=== PATIENT | male | born 1965 | race African-American/Black ===

== ENCOUNTER 2021-12-24 15:32 | Inpatient (IN) | payer MEDICARE ==
[2021-12-24 18:07] VITALS: BMI 23.7
[2021-12-24] MEDS ORDERED: MAGNESIUM CITRATE 300 ML BOTTLE PO PRN (21:34)
[2021-12-24] MEDS ORDERED: LOPERAMIDE HCL 2 MG CAPSULE PO PRN (21:34)
[2021-12-24] MEDS ORDERED: guaiFENesin 200 MG/10 ML 10 ML UNIT-DOSE CUPS PO PRN (21:34)
[2021-12-24] MEDS ORDERED: IBUPROFEN 400 MG TABLET (FP) PO PRN (21:34)
[2021-12-24] MEDS ORDERED: P-EPHED 60MG/TRIPROLIDI 2.5MG TABLET PO PRN (21:34)
[2021-12-25] MEDS: THIAMINE HCL 100 MG TABLET (FP) PO SCH ×2 (02:41→21:13)
[2021-12-25 09:32] LABS: HEMOGLOBIN 11.8 GM/dL (11.7-16.9); MCH 27.8 pg (25.7-33.7); MCHC 31.8 g/dl (32.0-35.9); MEAN CELL VOLUME 87.5 fl (80-96); MEAN PLT VOLUME 9.1 fl (7.5-11.1); PLATELET COUNT 179 10^3/uL (134-434); RBC 4.23 M/mm3 (4.00-5.60); RDW 13.9 % (11.9-15.9); WHITE BLOOD COUNT 4.1 K/mm3 (4.0-10.0)
[2021-12-25 09:51] LABS: ALBUMIN 3.5 g/dl (3.4-5.0)
[2021-12-25 09:52] LABS: BLOOD UREA NITROGEN 16.9 mg/dL (7-18)
[2021-12-25 09:56] LABS: CREATININE 1.7 mg/dL (0.55-1.3)
[2021-12-25 09:57] LABS: BILIRUBIN,TOTAL 0.3 mg/dL (0.2-1); TOT PROT 6.6 g/dl (6.4-8.2)
[2021-12-25] MEDS: PRENATAL VITAMINS W/ FOLIC ACID TABLET (FP) PO SCH (10:08)
[2021-12-25] MEDS: hydrOXYzine PAMOATE 25 MG CAPSULE (FP) PO PRN (10:08)
[2021-12-25] MEDS: MELATONIN 5 MG TABLETS PO PRN (21:13)
[2021-12-26] MEDS: PRENATAL VITAMINS W/ FOLIC ACID TABLET (FP) PO SCH (10:11)
[2021-12-26 19:07] LABS: PH,URINE 5.5 (5.0-8.0); URINE APPEARANCE CLEAR; URINE BILIRUBIN NEGATIVE (NEGATIVE); URINE COLOR YELLOW; URINE GLUCOSE (UA) NEGATIVE (NEGATIVE); URINE KETONE NEGATIVE (NEGATIVE); URINE LEUK ESTERASE NEGATIVE (NEGATIVE); URINE NITRITE NEGATIVE (NEGATIVE); URINE PROTEIN NEGATIVE (NEGATIVE); URINE UROBILINOGEN 0.2 mg/dL (0.2-1.0)
[2021-12-26 20:16] LABS: OPIATES, URI NEGATIVE (NEGATIVE); URINE BARBITURATES NEGATIVE (NEGATIVE)
[2021-12-26 20:17] LABS: METHADONE, UR NEGATIVE (NEGATIVE); PHENCYCLIDINE,URINE NEGATIVE (NEGATIVE); URINE BENZODIAZEPINES NEGATIVE (NEGATIVE)
[2021-12-26 20:28] LABS: COCAINE, UR POSITIVE (NEGATIVE); URINE AMPHETAMINES NEGATIVE (NEGATIVE)
[2021-12-26] MEDS: THIAMINE HCL 100 MG TABLET (FP) PO SCH (22:02)
[2021-12-27] MEDS: ACETAMINOPHEN 325 MG TABLET (FP) PO PRN (05:54)
[2021-12-27] MEDS: PRENATAL VITAMINS W/ FOLIC ACID TABLET (FP) PO SCH (10:05)
[2021-12-27] MEDS: THIAMINE HCL 100 MG TABLET (FP) PO SCH (21:59)
[2021-12-28] MEDS: ACETAMINOPHEN 325 MG TABLET (FP) PO PRN (02:39)
[2021-12-28] MEDS: PRENATAL VITAMINS W/ FOLIC ACID TABLET (FP) PO SCH (10:02)
[2021-12-28] MEDS: hydrOXYzine PAMOATE 25 MG CAPSULE (FP) PO PRN (10:03)
[2021-12-28 16:07] LABS: SARS-CoV-2 NAA Not Detected (Not Detected)
[2021-12-28] MEDS: THIAMINE HCL 100 MG TABLET (FP) PO SCH (22:33)
[2021-12-29] MEDS: PRENATAL VITAMINS W/ FOLIC ACID TABLET (FP) PO SCH (10:29)
[2021-12-29] MEDS: hydrOXYzine PAMOATE 25 MG CAPSULE (FP) PO PRN (10:30)
[2021-12-29] MEDS: MAGNESIUM HYDROX 2400MG/30ML ORAL SUSPENSION 30 ML CUP PO PRN (14:00)
[2021-12-29] MEDS: MINERAL OIL/PETROLAT/WATER TOPICAL CREAM 113 GM JAR TP SCH (15:43)
[2021-12-29] MEDS: THIAMINE HCL 100 MG TABLET (FP) PO SCH (21:21)
[2021-12-29] MEDS: CARBAMIDE PEROXIDE 6.5% OTIC 15 ML BOTTLE AU SCH (21:21)
[2021-12-29] MEDS: MELATONIN 5 MG TABLETS PO PRN (21:21)
[2021-12-29] MEDS: VITAMINS A AND D TOPICAL OINTMENT 60 GM TUBE TP SCH (21:22)
[2021-12-29] MEDS: MAG HYDROX/AL HYDROX/SIMETH 30 ML UNIT-DOSE CUP PO PRN (21:22)
[2021-12-30] MEDS: MINERAL OIL/PETROLAT/WATER TOPICAL CREAM 113 GM JAR TP SCH (10:04)
[2021-12-30] MEDS: VITAMINS A AND D TOPICAL OINTMENT 60 GM TUBE TP SCH ×2 (10:04→21:14)
[2021-12-30] MEDS: PRENATAL VITAMINS W/ FOLIC ACID TABLET (FP) PO SCH (10:04)
[2021-12-30] MEDS: CARBAMIDE PEROXIDE 6.5% OTIC 15 ML BOTTLE AU SCH ×2 (10:04→21:14)
[2021-12-30] MEDS: hydrOXYzine PAMOATE 25 MG CAPSULE (FP) PO PRN ×2 (10:06→21:14)
[2021-12-30] MEDS: MAG HYDROX/AL HYDROX/SIMETH 30 ML UNIT-DOSE CUP PO PRN ×2 (10:07→21:14)
[2021-12-30] MEDS: MELATONIN 5 MG TABLETS PO PRN (21:13)
[2021-12-30] MEDS: THIAMINE HCL 100 MG TABLET (FP) PO SCH (21:13)
[2021-12-31] MEDS: hydrOXYzine PAMOATE 25 MG CAPSULE (FP) PO PRN ×2 (10:07→21:06)
[2021-12-31] MEDS: PRENATAL VITAMINS W/ FOLIC ACID TABLET (FP) PO SCH (10:07)
[2021-12-31] MEDS: VITAMINS A AND D TOPICAL OINTMENT 60 GM TUBE TP SCH ×2 (10:09→21:06)
[2021-12-31] MEDS: MINERAL OIL/PETROLAT/WATER TOPICAL CREAM 113 GM JAR TP SCH (10:09)
[2021-12-31] MEDS: CARBAMIDE PEROXIDE 6.5% OTIC 15 ML BOTTLE AU SCH ×2 (10:57→21:06)
[2021-12-31] MEDS: MELATONIN 5 MG TABLETS PO PRN (21:05)
[2021-12-31] MEDS: THIAMINE HCL 100 MG TABLET (FP) PO SCH (21:05)
[2022-01-01] MEDS: MINERAL OIL/PETROLAT/WATER TOPICAL CREAM 113 GM JAR TP SCH (10:12)
[2022-01-01] MEDS: PRENATAL VITAMINS W/ FOLIC ACID TABLET (FP) PO SCH (10:12)
[2022-01-01] MEDS: CARBAMIDE PEROXIDE 6.5% OTIC 15 ML BOTTLE AU SCH (10:12)
[2022-01-01] MEDS: hydrOXYzine PAMOATE 25 MG CAPSULE (FP) PO PRN ×2 (10:13→21:23)
[2022-01-01] MEDS: VITAMINS A AND D TOPICAL OINTMENT 60 GM TUBE TP SCH ×2 (10:13→21:22)
[2022-01-01] MEDS: MAGNESIUM HYDROX 2400MG/30ML ORAL SUSPENSION 30 ML CUP PO PRN (10:14)
[2022-01-01] MEDS: MELATONIN 5 MG TABLETS PO PRN (21:22)
[2022-01-01] MEDS: THIAMINE HCL 100 MG TABLET (FP) PO SCH (21:23)
[2022-01-02] MEDS: hydrOXYzine PAMOATE 25 MG CAPSULE (FP) PO PRN ×2 (09:46→21:01)
[2022-01-02] MEDS: VITAMINS A AND D TOPICAL OINTMENT 60 GM TUBE TP SCH ×2 (09:46→21:20)
[2022-01-02] MEDS: MINERAL OIL/PETROLAT/WATER TOPICAL CREAM 113 GM JAR TP SCH (09:46)
[2022-01-02] MEDS: PRENATAL VITAMINS W/ FOLIC ACID TABLET (FP) PO SCH (09:46)
[2022-01-02] MEDS: MELATONIN 5 MG TABLETS PO PRN (21:01)
[2022-01-02] MEDS: THIAMINE HCL 100 MG TABLET (FP) PO SCH (21:01)
[2022-01-03] MEDS: PRENATAL VITAMINS W/ FOLIC ACID TABLET (FP) PO SCH (10:33)
[2022-01-03] MEDS: MINERAL OIL/PETROLAT/WATER TOPICAL CREAM 113 GM JAR TP SCH (10:33)
[2022-01-03] MEDS: VITAMINS A AND D TOPICAL OINTMENT 60 GM TUBE TP SCH ×2 (10:34→21:30)
[2022-01-03] MEDS: hydrOXYzine PAMOATE 25 MG CAPSULE (FP) PO PRN ×2 (10:35→21:30)
[2022-01-03] MEDS: MAGNESIUM HYDROX 2400MG/30ML ORAL SUSPENSION 30 ML CUP PO PRN (16:13)
[2022-01-03] MEDS: THIAMINE HCL 100 MG TABLET (FP) PO SCH (21:34)
[2022-01-04] MEDS: VITAMINS A AND D TOPICAL OINTMENT 60 GM TUBE TP SCH ×2 (10:17→21:02)
[2022-01-04] MEDS: MINERAL OIL/PETROLAT/WATER TOPICAL CREAM 113 GM JAR TP SCH (10:17)
[2022-01-04] MEDS: PRENATAL VITAMINS W/ FOLIC ACID TABLET (FP) PO SCH (10:17)
[2022-01-04] MEDS: MAGNESIUM HYDROX 2400MG/30ML ORAL SUSPENSION 30 ML CUP PO PRN (10:19)
[2022-01-04] MEDS: hydrOXYzine PAMOATE 25 MG CAPSULE (FP) PO PRN ×2 (10:19→21:02)
[2022-01-04] MEDS: THIAMINE HCL 100 MG TABLET (FP) PO SCH (21:02)
[2022-01-05] MEDS: hydrOXYzine PAMOATE 25 MG CAPSULE (FP) PO PRN ×2 (10:40→22:12)
[2022-01-05] MEDS: VITAMINS A AND D TOPICAL OINTMENT 60 GM TUBE TP SCH ×2 (10:40→22:13)
[2022-01-05] MEDS: PRENATAL VITAMINS W/ FOLIC ACID TABLET (FP) PO SCH (10:40)
[2022-01-05] MEDS: MINERAL OIL/PETROLAT/WATER TOPICAL CREAM 113 GM JAR TP SCH (10:41)
[2022-01-05] MEDS: THIAMINE HCL 100 MG TABLET (FP) PO SCH (22:12)
[2022-01-05] MEDS: MELATONIN 5 MG TABLETS PO PRN (22:12)
[2022-01-06] MEDS: PRENATAL VITAMINS W/ FOLIC ACID TABLET (FP) PO SCH (10:21)
[2022-01-06] MEDS: hydrOXYzine PAMOATE 25 MG CAPSULE (FP) PO PRN (10:21)
[2022-01-06] MEDS: MINERAL OIL/PETROLAT/WATER TOPICAL CREAM 113 GM JAR TP SCH (10:22)
[2022-01-06] MEDS: VITAMINS A AND D TOPICAL OINTMENT 60 GM TUBE TP SCH ×2 (10:22→21:46)
[2022-01-06] MEDS: MELATONIN 5 MG TABLETS PO PRN (21:45)
[2022-01-06] MEDS: THIAMINE HCL 100 MG TABLET (FP) PO SCH (21:45)
[2022-01-07 07:14] VITALS: TEMP 98.1
[2022-01-07] MEDS: VITAMINS A AND D TOPICAL OINTMENT 60 GM TUBE TP SCH ×2 (10:29→21:53)
[2022-01-07] MEDS: PRENATAL VITAMINS W/ FOLIC ACID TABLET (FP) PO SCH (10:29)
[2022-01-07] MEDS: MINERAL OIL/PETROLAT/WATER TOPICAL CREAM 113 GM JAR TP SCH (10:31)
[2022-01-07] MEDS: THIAMINE HCL 100 MG TABLET (FP) PO SCH (21:03)
[2022-01-07] MEDS: MELATONIN 5 MG TABLETS PO PRN (21:03)
[2022-01-07] MEDS: hydrOXYzine PAMOATE 25 MG CAPSULE (FP) PO PRN (21:03)
[2022-01-08 07:18] VITALS: BP 155/93; PULSE 68
[2022-01-08] MEDS: MINERAL OIL/PETROLAT/WATER TOPICAL CREAM 113 GM JAR TP SCH (09:47)
[2022-01-08] MEDS: PRENATAL VITAMINS W/ FOLIC ACID TABLET (FP) PO SCH (09:47)
[2022-01-08] MEDS: VITAMINS A AND D TOPICAL OINTMENT 60 GM TUBE TP SCH (09:48)
== END 2022-01-08 09:56 | disposition home or self-care (01) | DRG 895 ==
LOC: YASAS 15:32 → Y3W 12-25 01:59
PROVIDERS: ADMIT Allergy & Immunology; ATTEND Allergy & Immunology
PROC: HZ42ZZZ Group Counseling for Substance Abuse Treatment, Cognitive-Behavioral (ICD-10-PCS; principal; 2021-12-25)
DX: F14.20 Cocaine dependence, uncomplicated (principal); Z85.528 Personal history of other malignant neoplasm of kidney; Z90.5 Acquired absence of kidney
CPT/HCPCS: 36415; 80053; 80307; 81003; 85027; 86780; 93005; 93010; C9803-CS; U0003; U0005

== ENCOUNTER 2022-02-22 10:01 | Inpatient (IN) | payer MEDICARE ==
[2022-02-22 10:14] VITALS: BMI 23.7
[2022-02-22] MEDS ORDERED: chlordiazePOXIDE HCL 25 MG CAPSULE PO PRN (11:00)
[2022-02-22] MEDS ORDERED: BISMUTH SUBSALICYLATE 524 MG/30 ML PO PRN (11:00)
[2022-02-22] MEDS ORDERED: MAGNESIUM HYDROX 2400MG/30ML ORAL SUSPENSION 30 ML CUP PO PRN (11:00)
[2022-02-22] MEDS ORDERED: ONDANSETRON *ODT* 4 MG TABLET SL PRN (11:00)
[2022-02-22] MEDS ORDERED: LOPERAMIDE HCL 2 MG CAPSULE PO PRN (11:00)
[2022-02-22] MEDS ORDERED: IBUPROFEN 600 MG TABLET (FP) PO PRN (11:00)
[2022-02-22] MEDS ORDERED: ACETAMINOPHEN 325 MG TABLET (FP) PO PRN ×2 (11:00)
[2022-02-22] MEDS ORDERED: IBUPROFEN 400 MG TABLET (FP) PO PRN (11:00)
[2022-02-22] MEDS ORDERED: DICYCLOMINE HCL 10 MG CAPSULE PO PRN (11:00)
[2022-02-22] MEDS ORDERED: BENZOCAINE/MENTHOL (CHLORASEPTIC ) LOZENGE MM PRN (11:00)
[2022-02-22] MEDS ORDERED: MAG HYDROX/AL HYDROX/SIMETH 30 ML UNIT-DOSE CUP PO PRN (11:00)
[2022-02-22] MEDS ORDERED: MAGNESIUM CITRATE 300 ML BOTTLE PO PRN (11:00)
[2022-02-22] MEDS: chlordiazePOXIDE HCL 25 MG CAPSULE PO SCH ×3 (11:37→22:10)
[2022-02-22] MEDS: METHOCARBAMOL 500 MG TABLET PO PRN (11:37)
[2022-02-22] MEDS: hydrOXYzine PAMOATE 25 MG CAPSULE (FP) PO SCH ×3 (13:12→22:10)
[2022-02-22] MEDS: MELATONIN 5 MG TABLETS PO SCH (22:09)
[2022-02-22] MEDS: THIAMINE HCL 100 MG TABLET (FP) PO SCH (22:10)
[2022-02-23] MEDS: hydrOXYzine PAMOATE 25 MG CAPSULE (FP) PO SCH ×5 (06:12→22:34)
[2022-02-23] MEDS: chlordiazePOXIDE HCL 25 MG CAPSULE PO SCH ×4 (06:12→22:34)
[2022-02-23] MEDS: PRENATAL VITAMINS W/ FOLIC ACID TABLET (FP) PO SCH (10:44)
[2022-02-23 11:55] LABS: HEMATOCRIT 35.7 % (35.4-49); HEMOGLOBIN 11.7 GM/dL (11.7-16.9); MCH 27.8 pg (25.7-33.7); MCHC 32.8 g/dl (32.0-35.9); MEAN CELL VOLUME 84.7 fl (80-96); MEAN PLT VOLUME 9.5 fl (7.5-11.1); PLATELET COUNT 185 10^3/uL (134-434); RBC 4.21 M/mm3 (4.00-5.60); RDW 13.3 % (11.9-15.9)
[2022-02-23 11:57] LABS: BLOOD UREA NITROGEN 18.7 mg/dL (7-18); CALCIUM 8.8 mg/dL (8.5-10.1)
[2022-02-23 11:58] LABS: ALBUMIN 2.8 g/dl (3.4-5.0)
[2022-02-23 12:01] LABS: CREATININE 1.8 mg/dL (0.55-1.3)
[2022-02-23 12:02] LABS: BILIRUBIN,TOTAL 0.3 mg/dL (0.2-1)
[2022-02-23] MEDS: THIAMINE HCL 100 MG TABLET (FP) PO SCH (22:33)
[2022-02-23] MEDS: MELATONIN 5 MG TABLETS PO SCH (22:33)
[2022-02-24] MEDS: hydrOXYzine PAMOATE 25 MG CAPSULE (FP) PO SCH ×5 (05:45→22:17)
[2022-02-24] MEDS: chlordiazePOXIDE HCL 25 MG CAPSULE PO SCH ×4 (05:45→22:17)
[2022-02-24] MEDS: PRENATAL VITAMINS W/ FOLIC ACID TABLET (FP) PO SCH (10:09)
[2022-02-24 14:20] LABS: CREATININE 1.9 mg/dL (0.55-1.3)
[2022-02-24] MEDS: VITAMINS A AND D TOPICAL OINTMENT 60 GM TUBE TP SCH (15:17)
[2022-02-24] MEDS: THIAMINE HCL 100 MG TABLET (FP) PO SCH (22:17)
[2022-02-24] MEDS: MELATONIN 5 MG TABLETS PO SCH (22:17)
[2022-02-24] MEDS: CLOTRIMAZOLE 1% CREAM TP SCH (22:20)
[2022-02-25] MEDS ORDERED: chlordiazePOXIDE HCL 10 MG CAPSULE PO PRN
[2022-02-25 01:24] LABS: HIV INTERPRETATION NEGATIVE (NEGATIVE)
[2022-02-25] MEDS: chlordiazePOXIDE HCL 10 MG CAPSULE PO SCH ×4 (05:04→22:34)
[2022-02-25] MEDS: hydrOXYzine PAMOATE 25 MG CAPSULE (FP) PO SCH ×5 (05:04→22:33)
[2022-02-25] MEDS: PRENATAL VITAMINS W/ FOLIC ACID TABLET (FP) PO SCH (10:07)
[2022-02-25] MEDS: VITAMINS A AND D TOPICAL OINTMENT 60 GM TUBE TP SCH (10:08)
[2022-02-25] MEDS: CLOTRIMAZOLE 1% CREAM TP SCH ×2 (10:08→22:36)
[2022-02-25] MEDS: amLODIPine BESYLATE 5 MG TABLET (FP) PO SCH (17:51)
[2022-02-25] MEDS: THIAMINE HCL 100 MG TABLET (FP) PO SCH (22:34)
[2022-02-25] MEDS: MELATONIN 5 MG TABLETS PO SCH (22:34)
[2022-02-26] MEDS: chlordiazePOXIDE HCL 10 MG CAPSULE PO SCH ×2 (05:48→18:12)
[2022-02-26] MEDS: hydrOXYzine PAMOATE 25 MG CAPSULE (FP) PO SCH ×5 (05:48→22:23)
[2022-02-26] MEDS: CLOTRIMAZOLE 1% CREAM TP SCH ×2 (10:34→22:23)
[2022-02-26] MEDS: amLODIPine BESYLATE 5 MG TABLET (FP) PO SCH (10:34)
[2022-02-26] MEDS: PRENATAL VITAMINS W/ FOLIC ACID TABLET (FP) PO SCH (10:34)
[2022-02-26] MEDS: VITAMINS A AND D TOPICAL OINTMENT 60 GM TUBE TP SCH (10:35)
[2022-02-26] MEDS: MINERAL OIL/PETROLAT/WATER TOPICAL CREAM 113 GM JAR TP SCH ×2 (15:24→22:22)
[2022-02-26] MEDS: METHOCARBAMOL 500 MG TABLET PO PRN (22:21)
[2022-02-26] MEDS: MELATONIN 5 MG TABLETS PO SCH (22:21)
[2022-02-26] MEDS: THIAMINE HCL 100 MG TABLET (FP) PO SCH (22:21)
[2022-02-27] MEDS ORDERED: chlordiazePOXIDE HCL 10 MG CAPSULE PO ONE (05:00)
[2022-02-27] MEDS: hydrOXYzine PAMOATE 25 MG CAPSULE (FP) PO SCH ×2 (06:04→10:15)
[2022-02-27 09:42] VITALS: BP 136/89; PULSE 77; TEMP 97.2
[2022-02-27] MEDS: PRENATAL VITAMINS W/ FOLIC ACID TABLET (FP) PO SCH (10:14)
[2022-02-27] MEDS: amLODIPine BESYLATE 5 MG TABLET (FP) PO SCH (10:16)
[2022-02-27] MEDS: MINERAL OIL/PETROLAT/WATER TOPICAL CREAM 113 GM JAR TP SCH (10:16)
[2022-02-27] MEDS: VITAMINS A AND D TOPICAL OINTMENT 60 GM TUBE TP SCH (10:16)
[2022-02-27] MEDS: CLOTRIMAZOLE 1% CREAM TP SCH (10:16)
== END 2022-02-27 12:43 | disposition other institution (70) | DRG 897 ==
LOC: YASAS 10:01 → Y6N 10:48
PROVIDERS: ADMIT Allergy & Immunology; ATTEND Surgery
PROC: HZ2ZZZZ Detoxification Services for Substance Abuse Treatment (ICD-10-PCS; principal; 2022-02-22)
DX: F10.230 Alcohol dependence with withdrawal, uncomplicated (principal); F14.20 Cocaine dependence, uncomplicated; D72.819 Decreased white blood cell count, unspecified; L85.3 Xerosis cutis; N28.9 Disorder of kidney and ureter, unspecified; Z90.5 Acquired absence of kidney; Z85.528 Personal history of other malignant neoplasm of kidney; Z85.118 Personal history of other malignant neoplasm of bronchus and lung
CPT/HCPCS: 36415; 80053; 82565; 85027; 86780; 87389; 87811; C9803-CS; U0003; U0005

== ENCOUNTER 2022-02-27 11:06 | Inpatient (IN) | payer MEDICARE ==
[2022-02-27] MEDS ORDERED: P-EPHED 60MG/TRIPROLIDI 2.5MG TABLET PO PRN (13:08)
[2022-02-27] MEDS ORDERED: ACETAMINOPHEN 325 MG TABLET (FP) PO PRN (13:08)
[2022-02-27] MEDS ORDERED: IBUPROFEN 400 MG TABLET (FP) PO PRN (13:08)
[2022-02-27] MEDS ORDERED: LOPERAMIDE HCL 2 MG CAPSULE PO PRN (13:08)
[2022-02-27] MEDS ORDERED: MAGNESIUM CITRATE 300 ML BOTTLE PO PRN (13:08)
[2022-02-27] MEDS ORDERED: guaiFENesin 200 MG/10 ML 10 ML UNIT-DOSE CUPS PO PRN (13:08)
[2022-02-27] MEDS ORDERED: MAGNESIUM HYDROX 2400MG/30ML ORAL SUSPENSION 30 ML CUP PO PRN (13:08)
[2022-02-27] MEDS ORDERED: MAG HYDROX/AL HYDROX/SIMETH 30 ML UNIT-DOSE CUP PO PRN (13:08)
[2022-02-27] MEDS: VITAMINS A AND D TOPICAL OINTMENT 60 GM TUBE TP SCH (18:33)
[2022-02-27] MEDS: THIAMINE HCL 100 MG TABLET (FP) PO SCH (21:47)
[2022-02-27] MEDS: MELATONIN 5 MG TABLETS PO SCH (21:47)
[2022-02-27] MEDS: MINERAL OIL/PETROLAT/WATER TOPICAL CREAM 113 GM JAR TP SCH (21:48)
[2022-02-28] MEDS: VITAMINS A AND D TOPICAL OINTMENT 60 GM TUBE TP SCH ×4 (00:57→17:28)
[2022-02-28] MEDS: PRENATAL VITAMINS W/ FOLIC ACID TABLET (FP) PO SCH (09:32)
[2022-02-28] MEDS: MINERAL OIL/PETROLAT/WATER TOPICAL CREAM 113 GM JAR TP SCH ×2 (09:33→21:25)
[2022-02-28] MEDS: THIAMINE HCL 100 MG TABLET (FP) PO SCH (21:24)
[2022-02-28] MEDS: MELATONIN 5 MG TABLETS PO SCH (21:24)
[2022-03-01] MEDS: VITAMINS A AND D TOPICAL OINTMENT 60 GM TUBE TP SCH ×4 (01:03→18:06)
[2022-03-01] MEDS: PRENATAL VITAMINS W/ FOLIC ACID TABLET (FP) PO SCH (09:45)
[2022-03-01] MEDS: MINERAL OIL/PETROLAT/WATER TOPICAL CREAM 113 GM JAR TP SCH ×2 (09:46→21:24)
[2022-03-01] MEDS: MELATONIN 5 MG TABLETS PO SCH (21:24)
[2022-03-01] MEDS: THIAMINE HCL 100 MG TABLET (FP) PO SCH (21:24)
[2022-03-02] MEDS: VITAMINS A AND D TOPICAL OINTMENT 60 GM TUBE TP SCH ×4 (00:30→18:29)
[2022-03-02] MEDS: PRENATAL VITAMINS W/ FOLIC ACID TABLET (FP) PO SCH (09:59)
[2022-03-02] MEDS: MINERAL OIL/PETROLAT/WATER TOPICAL CREAM 113 GM JAR TP SCH ×2 (09:59→21:37)
[2022-03-02] MEDS: MELATONIN 5 MG TABLETS PO SCH (21:37)
[2022-03-02] MEDS: THIAMINE HCL 100 MG TABLET (FP) PO SCH (21:37)
[2022-03-03] MEDS: VITAMINS A AND D TOPICAL OINTMENT 60 GM TUBE TP SCH ×4 (01:26→18:12)
[2022-03-03] MEDS: MINERAL OIL/PETROLAT/WATER TOPICAL CREAM 113 GM JAR TP SCH ×2 (09:35→21:15)
[2022-03-03] MEDS: amLODIPine BESYLATE 5 MG TABLET (FP) PO SCH (09:35)
[2022-03-03] MEDS: PRENATAL VITAMINS W/ FOLIC ACID TABLET (FP) PO SCH (09:35)
[2022-03-03 15:29] LABS: CALCIUM 8.9 mg/dL (8.5-10.1)
[2022-03-03 15:30] LABS: BLOOD UREA NITROGEN 22.1 mg/dL (7-18)
[2022-03-03 15:33] LABS: CREATININE 1.8 mg/dL (0.55-1.3); PHOSPHOROUS 4.3 mg/dL (2.5-4.9)
[2022-03-03 15:36] LABS: ALBUMIN 3.6 g/dl (3.4-5.0)
[2022-03-03] MEDS: MELATONIN 5 MG TABLETS PO SCH (21:15)
[2022-03-03] MEDS: THIAMINE HCL 100 MG TABLET (FP) PO SCH (21:15)
[2022-03-04] MEDS: VITAMINS A AND D TOPICAL OINTMENT 60 GM TUBE TP SCH ×4 (01:37→18:43)
[2022-03-04] MEDS: PRENATAL VITAMINS W/ FOLIC ACID TABLET (FP) PO SCH (09:46)
[2022-03-04] MEDS: COLLOIDAL OATMEAL 1 BAR EACH TP PRN (09:46)
[2022-03-04] MEDS: amLODIPine BESYLATE 5 MG TABLET (FP) PO SCH (09:46)
[2022-03-04] MEDS: MINERAL OIL/PETROLAT/WATER TOPICAL CREAM 113 GM JAR TP SCH ×2 (09:46→21:30)
[2022-03-04] MEDS: THIAMINE HCL 100 MG TABLET (FP) PO SCH (21:30)
[2022-03-04] MEDS: SUVOREXANT 10 MG TABLET PO PRN (21:31)
[2022-03-05] MEDS: VITAMINS A AND D TOPICAL OINTMENT 60 GM TUBE TP SCH ×5 (00:48→23:11)
[2022-03-05] MEDS: MINERAL OIL/PETROLAT/WATER TOPICAL CREAM 113 GM JAR TP SCH ×2 (09:43→21:08)
[2022-03-05] MEDS: PRENATAL VITAMINS W/ FOLIC ACID TABLET (FP) PO SCH (09:43)
[2022-03-05] MEDS: amLODIPine BESYLATE 5 MG TABLET (FP) PO SCH (09:43)
[2022-03-05] MEDS: THIAMINE HCL 100 MG TABLET (FP) PO SCH (21:08)
[2022-03-05] MEDS: SUVOREXANT 10 MG TABLET PO PRN (21:08)
[2022-03-06] MEDS: VITAMINS A AND D TOPICAL OINTMENT 60 GM TUBE TP SCH ×3 (06:09→18:57)
[2022-03-06] MEDS: amLODIPine BESYLATE 5 MG TABLET (FP) PO SCH (09:50)
[2022-03-06] MEDS: MINERAL OIL/PETROLAT/WATER TOPICAL CREAM 113 GM JAR TP SCH ×2 (09:51→22:12)
[2022-03-06] MEDS: PRENATAL VITAMINS W/ FOLIC ACID TABLET (FP) PO SCH (09:51)
[2022-03-06] MEDS: hydrOXYzine PAMOATE 25 MG CAPSULE (FP) PO PRN (22:10)
[2022-03-06] MEDS: SUVOREXANT 10 MG TABLET PO PRN (22:10)
[2022-03-06] MEDS: THIAMINE HCL 100 MG TABLET (FP) PO SCH (22:11)
[2022-03-07] MEDS: VITAMINS A AND D TOPICAL OINTMENT 60 GM TUBE TP SCH ×5 (00:58→23:44)
[2022-03-07] MEDS: amLODIPine BESYLATE 5 MG TABLET (FP) PO SCH (09:41)
[2022-03-07] MEDS: PRENATAL VITAMINS W/ FOLIC ACID TABLET (FP) PO SCH (09:44)
[2022-03-07] MEDS: MINERAL OIL/PETROLAT/WATER TOPICAL CREAM 113 GM JAR TP SCH ×2 (09:44→21:36)
[2022-03-07] MEDS: BENZOCAINE/MENTHOL (CHLORASEPTIC ) LOZENGE MM PRN ×2 (10:48→16:57)
[2022-03-07] MEDS: THIAMINE HCL 100 MG TABLET (FP) PO SCH (21:36)
[2022-03-07] MEDS: hydrOXYzine PAMOATE 25 MG CAPSULE (FP) PO PRN (21:36)
[2022-03-07] MEDS: SUVOREXANT 10 MG TABLET PO PRN (21:38)
[2022-03-08] MEDS: VITAMINS A AND D TOPICAL OINTMENT 60 GM TUBE TP SCH ×3 (07:20→17:03)
[2022-03-08] MEDS: PRENATAL VITAMINS W/ FOLIC ACID TABLET (FP) PO SCH (09:57)
[2022-03-08] MEDS: MINERAL OIL/PETROLAT/WATER TOPICAL CREAM 113 GM JAR TP SCH ×2 (09:57→21:29)
[2022-03-08] MEDS: amLODIPine BESYLATE 5 MG TABLET (FP) PO SCH (09:57)
[2022-03-08] MEDS: BENZOCAINE/MENTHOL (CHLORASEPTIC ) LOZENGE MM PRN (09:59)
[2022-03-08] MEDS: THIAMINE HCL 100 MG TABLET (FP) PO SCH (21:28)
[2022-03-08] MEDS: hydrOXYzine PAMOATE 25 MG CAPSULE (FP) PO PRN (21:29)
[2022-03-08] MEDS: SUVOREXANT 10 MG TABLET PO PRN (21:29)
[2022-03-09] MEDS: VITAMINS A AND D TOPICAL OINTMENT 60 GM TUBE TP SCH ×4 (00:45→17:31)
[2022-03-09] MEDS: amLODIPine BESYLATE 5 MG TABLET (FP) PO SCH (09:51)
[2022-03-09] MEDS: MINERAL OIL/PETROLAT/WATER TOPICAL CREAM 113 GM JAR TP SCH ×2 (09:51→21:22)
[2022-03-09] MEDS: PRENATAL VITAMINS W/ FOLIC ACID TABLET (FP) PO SCH (09:51)
[2022-03-09] MEDS: THIAMINE HCL 100 MG TABLET (FP) PO SCH (21:20)
[2022-03-09] MEDS: hydrOXYzine PAMOATE 25 MG CAPSULE (FP) PO PRN (21:21)
[2022-03-09] MEDS: SUVOREXANT 10 MG TABLET PO PRN (21:22)
[2022-03-10] MEDS: VITAMINS A AND D TOPICAL OINTMENT 60 GM TUBE TP SCH ×4 (00:58→19:14)
[2022-03-10] MEDS: MINERAL OIL/PETROLAT/WATER TOPICAL CREAM 113 GM JAR TP SCH ×2 (09:43→21:23)
[2022-03-10] MEDS: amLODIPine BESYLATE 5 MG TABLET (FP) PO SCH (09:44)
[2022-03-10] MEDS: PRENATAL VITAMINS W/ FOLIC ACID TABLET (FP) PO SCH (09:44)
[2022-03-10] MEDS: THIAMINE HCL 100 MG TABLET (FP) PO SCH (21:23)
[2022-03-10] MEDS: hydrOXYzine PAMOATE 25 MG CAPSULE (FP) PO PRN (21:24)
[2022-03-10] MEDS: SUVOREXANT 10 MG TABLET PO PRN (21:24)
[2022-03-11] MEDS: VITAMINS A AND D TOPICAL OINTMENT 60 GM TUBE TP SCH ×4 (01:11→18:12)
[2022-03-11] MEDS: PRENATAL VITAMINS W/ FOLIC ACID TABLET (FP) PO SCH (09:36)
[2022-03-11] MEDS: amLODIPine BESYLATE 5 MG TABLET (FP) PO SCH (09:36)
[2022-03-11] MEDS: MINERAL OIL/PETROLAT/WATER TOPICAL CREAM 113 GM JAR TP SCH ×2 (09:39→21:31)
[2022-03-11] MEDS: COLLOIDAL OATMEAL 1 BAR EACH TP PRN (09:39)
[2022-03-11] MEDS: hydrOXYzine PAMOATE 25 MG CAPSULE (FP) PO PRN (21:30)
[2022-03-11] MEDS: THIAMINE HCL 100 MG TABLET (FP) PO SCH (21:30)
[2022-03-11] MEDS: SUVOREXANT 10 MG TABLET PO PRN (21:31)
[2022-03-12] MEDS: VITAMINS A AND D TOPICAL OINTMENT 60 GM TUBE TP SCH ×4 (01:13→18:25)
[2022-03-12] MEDS: amLODIPine BESYLATE 5 MG TABLET (FP) PO SCH (10:03)
[2022-03-12] MEDS: MINERAL OIL/PETROLAT/WATER TOPICAL CREAM 113 GM JAR TP SCH ×2 (10:04→21:38)
[2022-03-12] MEDS: PRENATAL VITAMINS W/ FOLIC ACID TABLET (FP) PO SCH (10:04)
[2022-03-12] MEDS: THIAMINE HCL 100 MG TABLET (FP) PO SCH (21:36)
[2022-03-12] MEDS: hydrOXYzine PAMOATE 25 MG CAPSULE (FP) PO PRN (21:36)
[2022-03-12] MEDS: SUVOREXANT 10 MG TABLET PO PRN (21:38)
[2022-03-13] MEDS: VITAMINS A AND D TOPICAL OINTMENT 60 GM TUBE TP SCH ×2 (00:30→06:54)
[2022-03-13 06:45] VITALS: TEMP 98.2
[2022-03-13 09:07] VITALS: BP 129/79; PULSE 71
[2022-03-13] MEDS: PRENATAL VITAMINS W/ FOLIC ACID TABLET (FP) PO SCH (09:13)
[2022-03-13] MEDS: amLODIPine BESYLATE 5 MG TABLET (FP) PO SCH (09:14)
[2022-03-13] MEDS: MINERAL OIL/PETROLAT/WATER TOPICAL CREAM 113 GM JAR TP SCH (09:14)
== END 2022-03-13 09:18 | disposition home or self-care (01) | DRG 895 ==
LOC: YASAS 11:06 → Y3E 11:08
PROVIDERS: ADMIT Allergy & Immunology; ATTEND Psychiatry & Neurology Pain Medicine
PROC: HZ42ZZZ Group Counseling for Substance Abuse Treatment, Cognitive-Behavioral (ICD-10-PCS; principal; 2022-02-27)
DX: F10.20 Alcohol dependence, uncomplicated (principal); F14.20 Cocaine dependence, uncomplicated; F19.280 Other psychoactive substance dependence with psychoactive substance-induced anxiety disorder; F19.282 Other psychoactive substance dependence with psychoactive substance-induced sleep disorder; G47.00 Insomnia, unspecified; I10 Essential (primary) hypertension; Z85.528 Personal history of other malignant neoplasm of kidney; Z90.5 Acquired absence of kidney
CPT/HCPCS: 36415; 80069

== ENCOUNTER 2023-04-29 13:30 | Inpatient (IN) | payer OTHER ==
[2023-04-29 14:13] VITALS: BMI 22.4
[2023-04-29] MEDS ORDERED: BISMUTH SUBSALICYLATE 524 MG/30 ML PO PRN (15:42)
[2023-04-29] MEDS ORDERED: IBUPROFEN 400 MG TABLET (FP) PO PRN (15:42)
[2023-04-29] MEDS ORDERED: POLYETHYLENE GLYCOL (HEALTHYLAX) 3350 17 GM PACKET PO PRN (15:42)
[2023-04-29] MEDS ORDERED: ACETAMINOPHEN 325 MG TABLET (FP) PO PRN (15:42)
[2023-04-29] MEDS ORDERED: NALOXONE HCL (KLOXXADO) 8 MG SPRAY NS PRN (15:42)
[2023-04-29] MEDS ORDERED: ONDANSETRON *ODT* 4 MG TABLET SL PRN (15:42)
[2023-04-29] MEDS ORDERED: BENZOCAINE/MENTHOL (CHLORASEPTIC ) LOZENGE MM PRN (15:42)
[2023-04-29] MEDS ORDERED: IBUPROFEN 600 MG TABLET (FP) PO PRN (15:42)
[2023-04-29] MEDS ORDERED: guaiFENesin 600 MG TABLET.ER (FP) PO PRN (15:42)
[2023-04-29] MEDS ORDERED: NALOXONE HCL 0.4 MG/ML VIAL IM PRN (15:42)
[2023-04-29] MEDS ORDERED: LOPERAMIDE HCL 2 MG CAPSULE PO PRN (15:42)
[2023-04-29] MEDS ORDERED: MAG HYDROX/AL HYDROX/SIMETH 30 ML UNIT-DOSE CUP PO PRN (15:42)
[2023-04-29] MEDS ORDERED: BENZONATATE 200 MG CAPSULE PO PRN (15:42)
[2023-04-29] MEDS ORDERED: DICYCLOMINE HCL 10 MG CAPSULE PO PRN (15:42)
[2023-04-29] MEDS ORDERED: hydrOXYzine PAMOATE 25 MG CAPSULE (FP) PO PRN (15:42)
[2023-04-29] MEDS ORDERED: METHOCARBAMOL 500 MG TABLET PO PRN (15:42)
[2023-04-29] MEDS ORDERED: chlordiazePOXIDE HCL 25 MG CAPSULE PO PRN (15:42)
[2023-04-29] MEDS ORDERED: MAGNESIUM HYDROX 2400MG/30ML ORAL SUSPENSION 30 ML CUP PO PRN (15:42)
[2023-04-29] MEDS ORDERED: chlordiazePOXIDE HCL 25 MG CAPSULE PO ONE (15:48)
[2023-04-29] MEDS: PRENATAL VITAMINS W/ FOLIC ACID TABLET (FP) PO SCH (19:03)
[2023-04-29] MEDS: amLODIPine BESYLATE 5 MG TABLET (FP) PO SCH (19:03)
[2023-04-29] MEDS: MELATONIN 5 MG TABLETS PO SCH (22:04)
[2023-04-29] MEDS: chlordiazePOXIDE HCL 25 MG CAPSULE PO SCH (22:04)
[2023-04-29] MEDS: THIAMINE HCL 100 MG TABLET (FP) PO SCH (22:04)
[2023-04-30] MEDS: chlordiazePOXIDE HCL 25 MG CAPSULE PO SCH ×4 (05:21→22:28)
[2023-04-30] MEDS: PRENATAL VITAMINS W/ FOLIC ACID TABLET (FP) PO SCH (10:09)
[2023-04-30] MEDS: amLODIPine BESYLATE 5 MG TABLET (FP) PO SCH (10:09)
[2023-04-30 12:01] LABS: HEMATOCRIT 41.3 % (35.4-49); HEMOGLOBIN 13.2 GM/dL (11.7-16.9); MCH 27.9 pg (25.7-33.7); MCHC 31.9 g/dl (32.0-35.9); MEAN CELL VOLUME 87.3 fl (80-96); MEAN PLT VOLUME 9.5 fl (7.5-11.1); PLATELET COUNT 177 10^3/uL (134-434); RBC 4.73 M/mm3 (4.00-5.60); RDW 13.1 % (11.9-15.9); WHITE BLOOD COUNT 3.9 K/mm3 (4.0-10.0)
[2023-04-30 12:15] LABS: POTASSIUM 3.8 mmol/L (3.5-5.1)
[2023-04-30 12:21] LABS: ALBUMIN 2.9 g/dl (3.4-5.0); BLOOD UREA NITROGEN 14.4 mg/dL (7-18)
[2023-04-30 12:22] LABS: CALCIUM 8.1 mg/dL (8.5-10.1)
[2023-04-30 12:24] LABS: CREATININE 1.5 mg/dL (0.55-1.3)
[2023-04-30 12:26] LABS: BILIRUBIN,TOTAL 0.5 mg/dL (0.2-1); TOT PROT 5.7 g/dl (6.4-8.2)
[2023-04-30] MEDS: MELATONIN 5 MG TABLETS PO SCH (22:29)
[2023-04-30] MEDS: THIAMINE HCL 100 MG TABLET (FP) PO SCH (22:29)
[2023-05-01] MEDS: chlordiazePOXIDE HCL 25 MG CAPSULE PO SCH ×4 (05:36→22:04)
[2023-05-01] MEDS: PRENATAL VITAMINS W/ FOLIC ACID TABLET (FP) PO SCH (10:32)
[2023-05-01] MEDS: amLODIPine BESYLATE 5 MG TABLET (FP) PO SCH (10:32)
[2023-05-01] MEDS: VITAMINS A AND D TOPICAL OINTMENT 60 GM TUBE TP SCH (19:06)
[2023-05-01] MEDS: THIAMINE HCL 100 MG TABLET (FP) PO SCH (22:03)
[2023-05-01] MEDS: MELATONIN 5 MG TABLETS PO SCH (22:03)
[2023-05-02] MEDS ORDERED: chlordiazePOXIDE HCL 10 MG CAPSULE PO PRN
[2023-05-02] MEDS: chlordiazePOXIDE HCL 10 MG CAPSULE PO SCH ×4 (05:32→22:07)
[2023-05-02] MEDS: VITAMINS A AND D TOPICAL OINTMENT 60 GM TUBE TP SCH ×3 (07:16→17:03)
[2023-05-02] MEDS: PRENATAL VITAMINS W/ FOLIC ACID TABLET (FP) PO SCH (10:27)
[2023-05-02] MEDS: amLODIPine BESYLATE 5 MG TABLET (FP) PO SCH (10:28)
[2023-05-02] MEDS ORDERED: MINERAL OIL/PET HY-PHL TOPICAL OINTMENT 454 GM JAR TP SCH (14:46)
[2023-05-02] MEDS ORDERED: guaiFENesin 200 MG/10 ML 10 ML UNIT-DOSE CUPS PO PRN (14:49)
[2023-05-02] MEDS: MELATONIN 5 MG TABLETS PO SCH (22:04)
[2023-05-02] MEDS: THIAMINE HCL 100 MG TABLET (FP) PO SCH (22:05)
[2023-05-02] MEDS: MINERAL OIL/PETROLAT/WATER TOPICAL CREAM 454 GM JAR TP SCH (22:06)
[2023-05-03] MEDS: VITAMINS A AND D TOPICAL OINTMENT 60 GM TUBE TP SCH ×5 (00:57→23:30)
[2023-05-03] MEDS: chlordiazePOXIDE HCL 10 MG CAPSULE PO SCH ×2 (05:47→17:52)
[2023-05-03] MEDS: amLODIPine BESYLATE 5 MG TABLET (FP) PO SCH (10:14)
[2023-05-03] MEDS: MINERAL OIL/PETROLAT/WATER TOPICAL CREAM 454 GM JAR TP SCH ×2 (10:14→22:14)
[2023-05-03] MEDS: PRENATAL VITAMINS W/ FOLIC ACID TABLET (FP) PO SCH (10:15)
[2023-05-03] MEDS: MELATONIN 5 MG TABLETS PO SCH (22:14)
[2023-05-03] MEDS: THIAMINE HCL 100 MG TABLET (FP) PO SCH (22:15)
[2023-05-04] MEDS ORDERED: chlordiazePOXIDE HCL 10 MG CAPSULE PO ONE (05:00)
[2023-05-04] MEDS: VITAMINS A AND D TOPICAL OINTMENT 60 GM TUBE TP SCH ×2 (05:23→12:50)
[2023-05-04 09:22] VITALS: BP 128/82; PULSE 93; RESP 18; TEMP 97.3
[2023-05-04] MEDS: amLODIPine BESYLATE 5 MG TABLET (FP) PO SCH (10:07)
[2023-05-04] MEDS: PRENATAL VITAMINS W/ FOLIC ACID TABLET (FP) PO SCH (10:07)
[2023-05-04] MEDS: MINERAL OIL/PETROLAT/WATER TOPICAL CREAM 454 GM JAR TP SCH (10:08)
== END 2023-05-04 12:08 | disposition other institution (70) | DRG 897 ==
LOC: YASAS 13:30 → Y3N 17:05
PROVIDERS: ADMIT Allergy & Immunology; ATTEND Allergy & Immunology
PROC: HZ2ZZZZ Detoxification Services for Substance Abuse Treatment (ICD-10-PCS; principal; 2023-04-29)
DX: F10.230 Alcohol dependence with withdrawal, uncomplicated (principal); F14.20 Cocaine dependence, uncomplicated; F17.210 Nicotine dependence, cigarettes, uncomplicated; F19.982 Other psychoactive substance use, unspecified with psychoactive substance-induced sleep disorder; F19.980 Other psychoactive substance use, unspecified with psychoactive substance-induced anxiety disorder; N28.9 Disorder of kidney and ureter, unspecified; R05.9 Cough, unspecified; G47.00 Insomnia, unspecified; Z85.528 Personal history of other malignant neoplasm of kidney; Z85.118 Personal history of other malignant neoplasm of bronchus and lung; Z90.5 Acquired absence of kidney; Z92.21 Personal history of antineoplastic chemotherapy; Y04.0XXA Assault by unarmed brawl or fight, initial encounter; Y93.9 Activity, unspecified; Y92.239 Unspecified place in hospital as the place of occurrence of the external cause
CPT/HCPCS: 36415; 71046-TC-FY; 80053; 85027; 86780; 87635; Q0162

== ENCOUNTER 2023-05-04 12:11 | Inpatient (IN) | payer OTHER ==
[2023-05-04] MEDS ORDERED: LOPERAMIDE HCL 2 MG CAPSULE PO PRN (15:16)
[2023-05-04] MEDS ORDERED: IBUPROFEN 600 MG TABLET (FP) PO PRN (15:16)
[2023-05-04] MEDS ORDERED: NICOTINE POLACRILEX 4 MG GUM BUC PRN (15:16)
[2023-05-04] MEDS ORDERED: BENZONATATE 200 MG CAPSULE PO PRN (15:16)
[2023-05-04] MEDS ORDERED: guaiFENesin 600 MG TABLET.ER (FP) PO PRN (15:16)
[2023-05-04] MEDS ORDERED: METHOCARBAMOL 500 MG TABLET PO PRN (15:16)
[2023-05-04] MEDS ORDERED: MAGNESIUM HYDROX 2400MG/30ML ORAL SUSPENSION 30 ML CUP PO PRN (15:16)
[2023-05-04] MEDS ORDERED: NICOTINE 14 MG/24 HOURS TOPICAL PATCH TD PRN (15:16)
[2023-05-04] MEDS ORDERED: MAG HYDROX/AL HYDROX/SIMETH 30 ML UNIT-DOSE CUP PO PRN (15:16)
[2023-05-04] MEDS ORDERED: ACETAMINOPHEN 325 MG TABLET (FP) PO PRN (15:16)
[2023-05-04] MEDS ORDERED: POLYETHYLENE GLYCOL (HEALTHYLAX) 3350 17 GM PACKET PO PRN (15:16)
[2023-05-04] MEDS ORDERED: hydrOXYzine PAMOATE 25 MG CAPSULE (FP) PO PRN (15:16)
[2023-05-04] MEDS ORDERED: NALOXONE HCL (KLOXXADO) 8 MG SPRAY NS PRN (15:16)
[2023-05-04] MEDS ORDERED: IBUPROFEN 400 MG TABLET (FP) PO PRN (15:16)
[2023-05-04] MEDS ORDERED: NALOXONE HCL 0.4 MG/ML VIAL IVPUSH PRN (15:16)
[2023-05-04] MEDS: THIAMINE HCL 100 MG TABLET (FP) PO SCH (21:04)
[2023-05-04] MEDS: MELATONIN 5 MG TABLETS PO SCH (21:04)
[2023-05-05] MEDS: PRENATAL VITAMINS W/ FOLIC ACID TABLET (FP) PO SCH (09:37)
[2023-05-05] MEDS: amLODIPine BESYLATE 5 MG TABLET (FP) PO SCH (09:38)
[2023-05-05] MEDS: VITAMINS A AND D TOPICAL OINTMENT 60 GM TUBE TP SCH ×2 (12:35→19:11)
[2023-05-05] MEDS: COLLOIDAL OATMEAL 1 BAR EACH TP PRN (12:36)
[2023-05-05 15:01] LABS: HIV INTERPRETATION NEGATIVE (NEGATIVE)
[2023-05-05] MEDS: BENZOCAINE/MENTHOL (CHLORASEPTIC ) LOZENGE MM PRN (16:21)
[2023-05-05] MEDS: THIAMINE HCL 100 MG TABLET (FP) PO SCH (21:02)
[2023-05-05] MEDS: MELATONIN 5 MG TABLETS PO SCH (21:02)
[2023-05-06] MEDS: VITAMINS A AND D TOPICAL OINTMENT 60 GM TUBE TP SCH ×4 (00:20→18:50)
[2023-05-06] MEDS: PRENATAL VITAMINS W/ FOLIC ACID TABLET (FP) PO SCH (09:53)
[2023-05-06] MEDS: amLODIPine BESYLATE 5 MG TABLET (FP) PO SCH (09:53)
[2023-05-06] MEDS ORDERED: amLODIPine BESYLATE 5 MG TABLET (FP) PO SCH (14:00)
[2023-05-06] MEDS: THIAMINE HCL 100 MG TABLET (FP) PO SCH (21:18)
[2023-05-06] MEDS: MELATONIN 5 MG TABLETS PO SCH (21:18)
[2023-05-07] MEDS: VITAMINS A AND D TOPICAL OINTMENT 60 GM TUBE TP SCH ×4 (00:20→17:05)
[2023-05-07] MEDS: BENZOCAINE/MENTHOL (CHLORASEPTIC ) LOZENGE MM PRN (03:11)
[2023-05-07] MEDS: PRENATAL VITAMINS W/ FOLIC ACID TABLET (FP) PO SCH (09:40)
[2023-05-07] MEDS: amLODIPine BESYLATE 5 MG TABLET (FP) PO SCH (09:40)
[2023-05-07] MEDS: QUEtiapine FUMARATE 100 MG TABLET (FP) PO SCH (21:09)
[2023-05-07] MEDS: MELATONIN 5 MG TABLETS PO SCH (21:09)
[2023-05-07] MEDS: THIAMINE HCL 100 MG TABLET (FP) PO SCH (21:09)
[2023-05-08] MEDS: VITAMINS A AND D TOPICAL OINTMENT 60 GM TUBE TP SCH ×4 (01:13→18:50)
[2023-05-08] MEDS: PRENATAL VITAMINS W/ FOLIC ACID TABLET (FP) PO SCH (09:48)
[2023-05-08] MEDS: amLODIPine BESYLATE 5 MG TABLET (FP) PO SCH (09:49)
[2023-05-08] MEDS: THIAMINE HCL 100 MG TABLET (FP) PO SCH (21:05)
[2023-05-08] MEDS: QUEtiapine FUMARATE 100 MG TABLET (FP) PO SCH (21:05)
[2023-05-08] MEDS: MELATONIN 5 MG TABLETS PO SCH (21:05)
[2023-05-09] MEDS: VITAMINS A AND D TOPICAL OINTMENT 60 GM TUBE TP SCH ×4 (00:30→18:50)
[2023-05-09] MEDS: amLODIPine BESYLATE 5 MG TABLET (FP) PO SCH (09:23)
[2023-05-09] MEDS: PRENATAL VITAMINS W/ FOLIC ACID TABLET (FP) PO SCH (09:23)
[2023-05-09] MEDS: AMMONIUM LACTATE 12% LOTION 225 GM BOTTLE TP PRN (09:24)
[2023-05-09] MEDS: THIAMINE HCL 100 MG TABLET (FP) PO SCH (21:23)
[2023-05-09] MEDS: QUEtiapine FUMARATE 100 MG TABLET (FP) PO SCH (21:23)
[2023-05-09] MEDS: MELATONIN 5 MG TABLETS PO SCH (21:23)
[2023-05-10] MEDS: VITAMINS A AND D TOPICAL OINTMENT 60 GM TUBE TP SCH ×4 (00:50→18:09)
[2023-05-10] MEDS: PRENATAL VITAMINS W/ FOLIC ACID TABLET (FP) PO SCH (09:27)
[2023-05-10] MEDS: amLODIPine BESYLATE 5 MG TABLET (FP) PO SCH (09:27)
[2023-05-10] MEDS: QUEtiapine FUMARATE 100 MG TABLET (FP) PO SCH (21:14)
[2023-05-10] MEDS: THIAMINE HCL 100 MG TABLET (FP) PO SCH (21:14)
[2023-05-10] MEDS: MELATONIN 5 MG TABLETS PO SCH (21:14)
[2023-05-10] MEDS: CARBAMIDE PEROXIDE 6.5% OTIC 15 ML BOTTLE AU SCH (21:15)
[2023-05-11] MEDS: VITAMINS A AND D TOPICAL OINTMENT 60 GM TUBE TP SCH ×4 (00:25→18:50)
[2023-05-11] MEDS: CARBAMIDE PEROXIDE 6.5% OTIC 15 ML BOTTLE AU SCH ×2 (09:50→21:05)
[2023-05-11] MEDS: PRENATAL VITAMINS W/ FOLIC ACID TABLET (FP) PO SCH (09:51)
[2023-05-11] MEDS: AMMONIUM LACTATE 12% LOTION 225 GM BOTTLE TP PRN (09:51)
[2023-05-11] MEDS: amLODIPine BESYLATE 5 MG TABLET (FP) PO SCH (10:57)
[2023-05-11 11:05] LABS: POTASSIUM 4.8 mmol/L (3.5-5.1)
[2023-05-11 11:39] LABS: CALCIUM 8.9 mg/dL (8.5-10.1)
[2023-05-11 11:40] LABS: ALBUMIN 3.3 g/dl (3.4-5.0); BLOOD UREA NITROGEN 21.6 mg/dL (7-18)
[2023-05-11 11:43] LABS: CREATININE 1.6 mg/dL (0.55-1.3)
[2023-05-11 11:45] LABS: BILIRUBIN,TOTAL 0.4 mg/dL (0.2-1); TOT PROT 6.6 g/dl (6.4-8.2)
[2023-05-11 16:10] LABS: HIV INTERPRETATION NEGATIVE (NEGATIVE)
[2023-05-11] MEDS: MELATONIN 5 MG TABLETS PO SCH (21:04)
[2023-05-11] MEDS: THIAMINE HCL 100 MG TABLET (FP) PO SCH (21:04)
[2023-05-11] MEDS: QUEtiapine FUMARATE 100 MG TABLET (FP) PO SCH (21:05)
[2023-05-12] MEDS: VITAMINS A AND D TOPICAL OINTMENT 60 GM TUBE TP SCH ×4 (00:30→18:53)
[2023-05-12] MEDS: NALTREXONE HCL 50 MG TABLET PO SCH (09:48)
[2023-05-12] MEDS: amLODIPine BESYLATE 5 MG TABLET (FP) PO SCH (09:48)
[2023-05-12] MEDS: PRENATAL VITAMINS W/ FOLIC ACID TABLET (FP) PO SCH (09:48)
[2023-05-12] MEDS: CARBAMIDE PEROXIDE 6.5% OTIC 15 ML BOTTLE AU SCH ×2 (09:49→21:21)
[2023-05-12] MEDS: MELATONIN 5 MG TABLETS PO SCH (21:22)
[2023-05-12] MEDS: QUEtiapine FUMARATE 100 MG TABLET (FP) PO SCH (21:22)
[2023-05-12] MEDS: THIAMINE HCL 100 MG TABLET (FP) PO SCH (21:22)
[2023-05-13] MEDS: VITAMINS A AND D TOPICAL OINTMENT 60 GM TUBE TP SCH ×4 (01:00→18:50)
[2023-05-13] MEDS: amLODIPine BESYLATE 5 MG TABLET (FP) PO SCH (10:30)
[2023-05-13] MEDS: PRENATAL VITAMINS W/ FOLIC ACID TABLET (FP) PO SCH (10:30)
[2023-05-13] MEDS: NALTREXONE HCL 50 MG TABLET PO SCH (10:31)
[2023-05-13] MEDS: CARBAMIDE PEROXIDE 6.5% OTIC 15 ML BOTTLE AU SCH ×2 (10:31→21:19)
[2023-05-13] MEDS: QUEtiapine FUMARATE 100 MG TABLET (FP) PO SCH (21:19)
[2023-05-13] MEDS: THIAMINE HCL 100 MG TABLET (FP) PO SCH (21:19)
[2023-05-13] MEDS: MELATONIN 5 MG TABLETS PO SCH (21:19)
[2023-05-14] MEDS: VITAMINS A AND D TOPICAL OINTMENT 60 GM TUBE TP SCH ×4 (01:00→18:55)
[2023-05-14] MEDS: amLODIPine BESYLATE 5 MG TABLET (FP) PO SCH (09:46)
[2023-05-14] MEDS: PRENATAL VITAMINS W/ FOLIC ACID TABLET (FP) PO SCH (09:46)
[2023-05-14] MEDS: NALTREXONE HCL 50 MG TABLET PO SCH (09:46)
[2023-05-14] MEDS: MELATONIN 5 MG TABLETS PO SCH (21:13)
[2023-05-14] MEDS: QUEtiapine FUMARATE 100 MG TABLET (FP) PO SCH (21:13)
[2023-05-14] MEDS: THIAMINE HCL 100 MG TABLET (FP) PO SCH (21:13)
[2023-05-15] MEDS: VITAMINS A AND D TOPICAL OINTMENT 60 GM TUBE TP SCH ×4 (00:41→17:44)
[2023-05-15] MEDS: NALTREXONE HCL 50 MG TABLET PO SCH (09:37)
[2023-05-15] MEDS: PRENATAL VITAMINS W/ FOLIC ACID TABLET (FP) PO SCH (09:37)
[2023-05-15] MEDS: amLODIPine BESYLATE 5 MG TABLET (FP) PO SCH (09:37)
[2023-05-15] MEDS: AMMONIUM LACTATE 12% LOTION 225 GM BOTTLE TP PRN (09:39)
[2023-05-15] MEDS: QUEtiapine FUMARATE 100 MG TABLET (FP) PO SCH (22:10)
[2023-05-15] MEDS: MELATONIN 5 MG TABLETS PO SCH (22:11)
[2023-05-15] MEDS: THIAMINE HCL 100 MG TABLET (FP) PO SCH (22:11)
[2023-05-16] MEDS: VITAMINS A AND D TOPICAL OINTMENT 60 GM TUBE TP SCH ×4 (00:47→17:35)
[2023-05-16] MEDS: COLLOIDAL OATMEAL 1 BAR EACH TP PRN (05:52)
[2023-05-16] MEDS: PRENATAL VITAMINS W/ FOLIC ACID TABLET (FP) PO SCH (09:37)
[2023-05-16] MEDS: NALTREXONE HCL 50 MG TABLET PO SCH (09:37)
[2023-05-16] MEDS: amLODIPine BESYLATE 5 MG TABLET (FP) PO SCH (09:37)
[2023-05-16] MEDS: QUEtiapine FUMARATE 100 MG TABLET (FP) PO SCH (21:15)
[2023-05-16] MEDS: MELATONIN 5 MG TABLETS PO SCH (21:16)
[2023-05-16] MEDS: THIAMINE HCL 100 MG TABLET (FP) PO SCH (21:16)
[2023-05-17] MEDS: VITAMINS A AND D TOPICAL OINTMENT 60 GM TUBE TP SCH ×2 (00:20→06:14)
[2023-05-17 09:23] VITALS: BP 144/76; PULSE 79; RESP 18; TEMP 97.5
[2023-05-17] MEDS ORDERED: NALTREXONE MICROSPHERES (VIVITROL) 380 MG DISP.SYRIN IM ONE ×2 (10:00)
[2023-05-17] MEDS: amLODIPine BESYLATE 5 MG TABLET (FP) PO SCH (10:33)
[2023-05-17] MEDS: PRENATAL VITAMINS W/ FOLIC ACID TABLET (FP) PO SCH (10:33)
== END 2023-05-17 10:36 | disposition home or self-care (01) | DRG 895 ==
LOC: YASAS 12:11 → Y3W 12:13
PROVIDERS: ADMIT Allergy & Immunology; ATTEND Psychiatry & Neurology Pain Medicine
PROC: HZ42ZZZ Group Counseling for Substance Abuse Treatment, Cognitive-Behavioral (ICD-10-PCS; principal; 2023-05-04)
DX: F10.20 Alcohol dependence, uncomplicated (principal); F14.20 Cocaine dependence, uncomplicated; F19.280 Other psychoactive substance dependence with psychoactive substance-induced anxiety disorder; F19.282 Other psychoactive substance dependence with psychoactive substance-induced sleep disorder; E72.20 Disorder of urea cycle metabolism, unspecified; F41.9 Anxiety disorder, unspecified; G47.00 Insomnia, unspecified; H61.23 Impacted cerumen, bilateral; Z20.822 Contact with and (suspected) exposure to COVID-19; Z85.528 Personal history of other malignant neoplasm of kidney; Z90.5 Acquired absence of kidney; Z87.891 Personal history of nicotine dependence
CPT/HCPCS: 36415; 80053; 82140; 86803; 87389; 87635; J2315

== ENCOUNTER 2023-09-06 12:22 | Inpatient (IN) | payer OTHER ==
[2023-09-06 12:49] VITALS: BMI 22.1
[2023-09-06] MEDS ORDERED: BISMUTH SUBSALICYLATE 524 MG/30 ML PO PRN (13:16)
[2023-09-06] MEDS ORDERED: BENZOCAINE/MENTHOL (CHLORASEPTIC ) LOZENGE MM PRN (13:16)
[2023-09-06] MEDS ORDERED: BENZONATATE 200 MG CAPSULE PO PRN (13:16)
[2023-09-06] MEDS ORDERED: IBUPROFEN 600 MG TABLET (FP) PO PRN (13:16)
[2023-09-06] MEDS ORDERED: LOPERAMIDE HCL 2 MG CAPSULE PO PRN (13:16)
[2023-09-06] MEDS ORDERED: guaiFENesin 600 MG TABLET.ER (FP) PO PRN (13:16)
[2023-09-06] MEDS ORDERED: NALOXONE HCL 0.4 MG/ML VIAL IM PRN (13:16)
[2023-09-06] MEDS ORDERED: POLYETHYLENE GLYCOL (HEALTHYLAX) 3350 17 GM PACKET PO PRN (13:16)
[2023-09-06] MEDS ORDERED: ONDANSETRON *ODT* 4 MG TABLET SL PRN (13:16)
[2023-09-06] MEDS ORDERED: ACETAMINOPHEN 325 MG TABLET (FP) PO PRN (13:16)
[2023-09-06] MEDS ORDERED: IBUPROFEN 400 MG TABLET (FP) PO PRN (13:16)
[2023-09-06] MEDS ORDERED: DICYCLOMINE HCL 10 MG CAPSULE PO PRN (13:16)
[2023-09-06] MEDS ORDERED: NALOXONE HCL (KLOXXADO) 8 MG SPRAY NS PRN (13:16)
[2023-09-06] MEDS ORDERED: MAG HYDROX/AL HYDROX/SIMETH 30 ML UNIT-DOSE CUP PO PRN (13:16)
[2023-09-06] MEDS ORDERED: LORazepam 1 MG TABLET PO PRN (13:24)
[2023-09-06] MEDS: LORazepam 1 MG TABLET PO SCH ×2 (18:00→22:19)
[2023-09-06] MEDS ORDERED: MELATONIN 5 MG TABLETS PO SCH (22:00)
[2023-09-06] MEDS: THIAMINE HCL 100 MG TABLET (FP) PO SCH (22:18)
[2023-09-07] MEDS: LORazepam 1 MG TABLET PO SCH ×4 (05:50→22:24)
[2023-09-07] MEDS: PRENATAL VITAMINS W/ FOLIC ACID TABLET (FP) PO SCH (10:49)
[2023-09-07] MEDS: amLODIPine BESYLATE 2.5 MG TABLET (FP) PO SCH (10:49)
[2023-09-07 13:06] LABS: HEMATOCRIT 41.4 % (35.4-49); HEMOGLOBIN 13.5 GM/dL (11.7-16.9); MCH 27.9 pg (25.7-33.7); MCHC 32.7 g/dl (32.0-35.9); MEAN CELL VOLUME 85.4 fl (80-96); MEAN PLT VOLUME 9.7 fl (7.5-11.1); PLATELET COUNT 241 10^3/uL (134-434); RBC 4.85 M/mm3 (4.00-5.60); RDW 13.4 % (11.9-15.9); WHITE BLOOD COUNT 4.6 K/mm3 (4.0-10.0)
[2023-09-07 13:41] LABS: ALBUMIN 3.8 g/dl (3.4-5.0); BLOOD UREA NITROGEN 24.3 mg/dL (7-18); CALCIUM 9.4 mg/dL (8.5-10.1)
[2023-09-07 13:45] LABS: CREATININE 1.8 mg/dL (0.55-1.3)
[2023-09-07 13:46] LABS: BILIRUBIN,TOTAL 0.6 mg/dL (0.2-1); TOT PROT 7.6 g/dl (6.4-8.2)
[2023-09-07] MEDS ORDERED: LISINOPRIL 5 MG TABLET PO ONE (14:28)
[2023-09-07] MEDS: THIAMINE HCL 100 MG TABLET (FP) PO SCH (22:24)
[2023-09-07] MEDS: MELATONIN 5 MG TABLETS PO SCH (22:24)
[2023-09-08] MEDS: LORazepam 1 MG TABLET PO SCH ×5 (06:10→22:43)
[2023-09-08] MEDS: PRENATAL VITAMINS W/ FOLIC ACID TABLET (FP) PO SCH (10:28)
[2023-09-08] MEDS: amLODIPine BESYLATE 2.5 MG TABLET (FP) PO SCH (10:28)
[2023-09-08] MEDS ORDERED: COLLOIDAL OATMEAL 1 BAR EACH TP PRN (11:23)
[2023-09-08] MEDS: VITAMINS A AND D TOPICAL OINTMENT 60 GM TUBE TP SCH (12:14)
[2023-09-08] MEDS: MELATONIN 5 MG TABLETS PO SCH (22:29)
[2023-09-08] MEDS: THIAMINE HCL 100 MG TABLET (FP) PO SCH (22:29)
[2023-09-09] MEDS ORDERED: LORazepam 0.5 MG TABLET PO PRN
[2023-09-09] MEDS: LORazepam 0.5 MG TABLET PO SCH ×4 (05:31→22:09)
[2023-09-09] MEDS: amLODIPine BESYLATE 2.5 MG TABLET (FP) PO SCH (10:17)
[2023-09-09] MEDS: PRENATAL VITAMINS W/ FOLIC ACID TABLET (FP) PO SCH (10:17)
[2023-09-09] MEDS: VITAMINS A AND D TOPICAL OINTMENT 60 GM TUBE TP SCH (10:18)
[2023-09-09 10:36] LABS: POTASSIUM 4.2 mmol/L (3.5-5.1)
[2023-09-09 10:40] LABS: BLOOD UREA NITROGEN 18.4 mg/dL (7-18)
[2023-09-09 10:42] LABS: CALCIUM 9.6 mg/dL (8.5-10.1)
[2023-09-09 10:44] LABS: CREATININE 1.5 mg/dL (0.55-1.3); PHOSPHOROUS 2.6 mg/dL (2.5-4.9)
[2023-09-09] MEDS: MAGNESIUM HYDROX 2400MG/30ML ORAL SUSPENSION 30 ML CUP PO PRN (13:33)
[2023-09-09] MEDS: MELATONIN 5 MG TABLETS PO SCH (22:10)
[2023-09-09] MEDS: THIAMINE HCL 100 MG TABLET (FP) PO SCH (22:10)
[2023-09-10] MEDS ORDERED: LORazepam 0.5 MG TABLET PO ONE (05:00)
[2023-09-10 06:14] VITALS: RESP 18
[2023-09-10] MEDS: VITAMINS A AND D TOPICAL OINTMENT 60 GM TUBE TP SCH (10:05)
[2023-09-10] MEDS: PRENATAL VITAMINS W/ FOLIC ACID TABLET (FP) PO SCH (10:05)
[2023-09-10] MEDS: amLODIPine BESYLATE 2.5 MG TABLET (FP) PO SCH (10:05)
[2023-09-10] MEDS: MAGNESIUM HYDROX 2400MG/30ML ORAL SUSPENSION 30 ML CUP PO PRN (12:17)
[2023-09-10 12:51] VITALS: BP 162/90; PULSE 86; TEMP 95.5
== END 2023-09-10 14:40 | disposition home or self-care (01) | DRG 896 ==
LOC: YASAS 12:22 → Y3N 13:40 → Y6N 19:57
PROVIDERS: ADMIT Allergy & Immunology; ATTEND Surgery
PROC: HZ2ZZZZ Detoxification Services for Substance Abuse Treatment (ICD-10-PCS; principal; 2023-09-06)
DX: F10.230 Alcohol dependence with withdrawal, uncomplicated (principal); U07.1 COVID-19; F14.20 Cocaine dependence, uncomplicated; F19.282 Other psychoactive substance dependence with psychoactive substance-induced sleep disorder; F19.24 Other psychoactive substance dependence with psychoactive substance-induced mood disorder; I10 Essential (primary) hypertension; N28.9 Disorder of kidney and ureter, unspecified; R73.9 Hyperglycemia, unspecified; Z85.528 Personal history of other malignant neoplasm of kidney; Z90.5 Acquired absence of kidney
CPT/HCPCS: 36415; 80053; 80069; 80307; 83036; 85027; 86780; 87635; 87811

== ENCOUNTER 2023-12-02 18:23 | Inpatient (IN) | payer OTHER ==
[2023-12-02 21:10] VITALS: BMI 23.5
[2023-12-03] MEDS ORDERED: guaiFENesin 600 MG TABLET.ER (FP) PO PRN (00:47)
[2023-12-03] MEDS ORDERED: NALOXONE HCL (KLOXXADO) 8 MG SPRAY NS PRN (00:47)
[2023-12-03] MEDS ORDERED: NICOTINE POLACRILEX 2 MG GUM BUC PRN (00:47)
[2023-12-03] MEDS ORDERED: BENZOCAINE/MENTHOL (CHLORASEPTIC ) LOZENGE MM PRN (00:47)
[2023-12-03] MEDS ORDERED: BENZONATATE 200 MG CAPSULE PO PRN (00:47)
[2023-12-03] MEDS ORDERED: LOPERAMIDE HCL 2 MG CAPSULE PO PRN (00:47)
[2023-12-03] MEDS ORDERED: IBUPROFEN 400 MG TABLET (FP) PO PRN (00:47)
[2023-12-03] MEDS ORDERED: NALOXONE HCL 0.4 MG/ML VIAL IM PRN (00:47)
[2023-12-03] MEDS ORDERED: POLYETHYLENE GLYCOL (HEALTHYLAX) 3350 17 GM PACKET PO PRN (00:47)
[2023-12-03] MEDS: TUBERCULIN PPD 5 TU/0.1ML SYRINGE (IN PATIENT USE ONLY) ID ONE (07:20)
[2023-12-03] MEDS: NICOTINE 14 MG/24 HOURS TOPICAL PATCH TD SCH (10:28)
[2023-12-03] MEDS: PRENATAL VITAMINS W/ FOLIC ACID TABLET (FP) PO SCH (10:29)
[2023-12-03 12:26] LABS: PH,URINE 5.5 (5.0-8.0); URINE APPEARANCE CLEAR; URINE BILIRUBIN NEGATIVE (NEGATIVE); URINE COLOR YELLOW; URINE GLUCOSE (UA) NEGATIVE (NEGATIVE); URINE KETONE TRACE (NEGATIVE); URINE LEUK ESTERASE NEGATIVE (NEGATIVE); URINE NITRITE NEGATIVE (NEGATIVE); URINE PROTEIN TRACE (NEGATIVE)
[2023-12-03] MEDS: THIAMINE HCL 100 MG TABLET (FP) PO SCH (21:13)
[2023-12-03] MEDS: MELATONIN 5 MG TABLETS PO SCH (21:13)
[2023-12-03] MEDS: MAGNESIUM HYDROX 2400MG/30ML ORAL SUSPENSION 30 ML CUP PO PRN (21:15)
[2023-12-04 12:48] LABS: HEMATOCRIT 35.1 % (35.4-49); HEMOGLOBIN 11.6 GM/dL (11.7-16.9); MCH 28.3 pg (25.7-33.7); MCHC 32.9 g/dl (32.0-35.9); MEAN CELL VOLUME 85.9 fl (80-96); MEAN PLT VOLUME 9.1 fl (7.5-11.1); PLATELET COUNT 119 10^3/uL (134-434); RBC 4.09 M/mm3 (4.00-5.60); RDW 12.9 % (11.9-15.9); WHITE BLOOD COUNT 2.5 K/mm3 (4.0-10.0)
[2023-12-04 12:49] LABS: POTASSIUM 4.8 mmol/L (3.5-5.1)
[2023-12-04 12:56] LABS: CALCIUM 8.4 mg/dL (8.5-10.1)
[2023-12-04 12:58] LABS: ALBUMIN 2.4 g/dl (3.4-5.0); BLOOD UREA NITROGEN 17.1 mg/dL (7-18)
[2023-12-04 13:00] LABS: CREATININE 1.4 mg/dL (0.55-1.3)
[2023-12-04 13:01] LABS: TOT PROT 4.7 g/dl (6.4-8.2)
[2023-12-04 13:11] LABS: BILIRUBIN,TOTAL 0.2 mg/dL (0.2-1)
[2023-12-05] MEDS: VITAMINS A AND D TOPICAL OINTMENT TP SCH (12:02)
[2023-12-05] MEDS: SUVOREXANT 10 MG TABLET PO PRN (21:03)
[2023-12-06] MEDS: amLODIPine BESYLATE 2.5 MG TABLET (FP) PO SCH (10:06)
[2023-12-06] MEDS: LIDOCAINE 5% TOPICAL PATCH TP SCH (10:07)
[2023-12-06] MEDS: NALTREXONE HCL 50 MG TABLET PO SCH (10:57)
[2023-12-06] MEDS: LIDOCAINE PATCH REMOVAL MC SCH (21:49)
[2023-12-07] MEDS: NALTREXONE HCL 50 MG TABLET PO SCH (09:19)
[2023-12-07] MEDS: SUVOREXANT 10 MG TABLET PO PRN (21:03)
[2023-12-07 23:32] LABS: HIV INTERPRETATION NEGATIVE (NEGATIVE)
[2023-12-08] MEDS: BACLOFEN 10 MG TABLET (FP) PO SCH (15:01)
[2023-12-09] MEDS: SUVOREXANT 10 MG TABLET PO PRN (21:04)
[2023-12-12] MEDS: ACETAMINOPHEN 325 MG TABLET (FP) PO PRN (02:42)
[2023-12-13] MEDS: SUVOREXANT 10 MG TABLET PO PRN (21:27)
[2023-12-14] MEDS: SUVOREXANT 10 MG TABLET PO PRN (21:27)
[2023-12-14] MEDS: BACLOFEN 10 MG TABLET (FP) PO PRN (21:29)
[2023-12-16] MEDS: SUVOREXANT 10 MG TABLET PO PRN (21:37)
[2023-12-18] MEDS: MAG HYDROX/AL HYDROX/SIMETH 30 ML UNIT-DOSE CUP PO PRN (13:28)
[2023-12-19] MEDS: IBUPROFEN 600 MG TABLET (FP) PO PRN (06:31)
[2023-12-20] MEDS: SUVOREXANT 10 MG TABLET PO PRN (21:04)
[2023-12-22] MEDS: NALTREXONE MICROSPHERES (VIVITROL) 380 MG DISP.SYRIN IM ONE (10:11)
[2023-12-22] MEDS: SUVOREXANT 10 MG TABLET PO PRN (21:03)
[2023-12-23 06:45] VITALS: RESP 18; TEMP 97.5
[2023-12-23 09:06] VITALS: BP 133/86; PULSE 72
[2023-12-29] MEDS ORDERED: NALTREXONE MICROSPHERES (VIVITROL) 380 MG DISP.SYRIN IM ONE (10:00)
== END 2023-12-23 09:01 | disposition home or self-care (01) | DRG 895 ==
LOC: YASAS 18:23 → Y3W 12-03 03:12
PROVIDERS: ADMIT Allergy & Immunology; ATTEND Psychiatry & Neurology Pain Medicine
PROC: HZ42ZZZ Group Counseling for Substance Abuse Treatment, Cognitive-Behavioral (ICD-10-PCS; principal; 2023-12-03)
DX: F10.20 Alcohol dependence, uncomplicated (principal); F14.20 Cocaine dependence, uncomplicated; F19.282 Other psychoactive substance dependence with psychoactive substance-induced sleep disorder; F41.9 Anxiety disorder, unspecified; F32.A Depression, unspecified; G47.00 Insomnia, unspecified; I10 Essential (primary) hypertension; N28.9 Disorder of kidney and ureter, unspecified; L85.3 Xerosis cutis; R07.81 Pleurodynia; Z87.891 Personal history of nicotine dependence; Z85.528 Personal history of other malignant neoplasm of kidney
CPT/HCPCS: 36415; 80053; 80305; 80307; 81003; 85027; 86780; 87389; 87635; 87811; 93005; 93010; J0475; J2315

== ENCOUNTER 2024-08-03 16:20 | Inpatient (IN) | payer OTHER ==
[2024-08-03 16:38] VITALS: BMI 24.1
[2024-08-03] MEDS ORDERED: MAG HYDROX/AL HYDROX/SIMETH 30 ML UNIT-DOSE CUP PO PRN (18:10)
[2024-08-03] MEDS ORDERED: BENZONATATE 200 MG CAPSULE PO PRN (18:10)
[2024-08-03] MEDS ORDERED: DICYCLOMINE HCL 10 MG CAPSULE PO PRN (18:10)
[2024-08-03] MEDS ORDERED: POLYETHYLENE GLYCOL (HEALTHYLAX) 3350 17 GM PACKET PO PRN (18:10)
[2024-08-03] MEDS ORDERED: BENZOCAINE/MENTHOL (CHLORASEPTIC ) LOZENGE MM PRN (18:10)
[2024-08-03] MEDS ORDERED: guaiFENesin 600 MG TABLET.ER (FP) PO PRN (18:10)
[2024-08-03] MEDS ORDERED: IBUPROFEN 400 MG TABLET (FP) PO PRN (18:10)
[2024-08-03] MEDS ORDERED: LOPERAMIDE HCL 2 MG CAPSULE PO PRN (18:10)
[2024-08-03] MEDS ORDERED: ONDANSETRON *ODT* 4 MG TABLET SL PRN (18:10)
[2024-08-03] MEDS ORDERED: MELATONIN 5 MG TABLETS ONE (22:03)
[2024-08-03] MEDS: THIAMINE 100 MG TABLET PO SCH (22:05)
[2024-08-03] MEDS: MELATONIN 5 MG TABLETS PO SCH (22:05)
[2024-08-03] MEDS ORDERED: IBUPROFEN 600 MG TABLET (FP) PO ONE (22:09)
[2024-08-03] MEDS: IBUPROFEN 600 MG TABLET (FP) PO PRN (22:10)
[2024-08-04] MEDS ORDERED: ACETAMINOPHEN 325 MG TABLET (FP) ONE (00:59)
[2024-08-04] MEDS ORDERED: hydrOXYzine PAMOATE 25 MG CAPSULE (FP) PO ONE (00:59)
[2024-08-04] MEDS: hydrOXYzine PAMOATE 25 MG CAPSULE (FP) PO PRN (01:01)
[2024-08-04] MEDS: ACETAMINOPHEN 325 MG TABLET (FP) PO PRN (01:01)
[2024-08-04] MEDS ORDERED: chlordiazePOXIDE HCL 25 MG CAPSULE PO PRN (07:49)
[2024-08-04] MEDS: chlordiazePOXIDE HCL 25 MG CAPSULE PO ONE (08:00)
[2024-08-04] MEDS: PRENATAL VITAMINS W/ FOLIC ACID TABLET (FP) PO SCH (10:21)
[2024-08-04] MEDS: chlordiazePOXIDE HCL 25 MG CAPSULE PO SCH (10:21)
[2024-08-04] MEDS: BISMUTH SUBSALICYLATE 524 MG/30 ML PO PRN (10:23)
[2024-08-04 12:04] LABS: HEMATOCRIT 36.4 % (35.4-49); HEMOGLOBIN 12.1 GM/dL (11.7-16.9); MCH 28.3 pg (25.7-33.7); MCHC 33.2 g/dl (32.0-35.9); MEAN CELL VOLUME 85.4 fl (80-96); MEAN PLT VOLUME 8.6 fl (7.5-11.1); PLATELET COUNT 164 10^3/uL (134-434); RBC 4.26 M/mm3 (4.00-5.60); RDW 13.7 % (11.9-15.9); WHITE BLOOD COUNT 2.9 K/mm3 (4.0-10.0)
[2024-08-04 12:23] LABS: POTASSIUM 4.6 mmol/L (3.5-5.1)
[2024-08-04 12:25] LABS: CALCIUM 8.4 mg/dL (8.5-10.1)
[2024-08-04 12:28] LABS: ALBUMIN 2.5 g/dl (3.4-5.0); BLOOD UREA NITROGEN 9.8 mg/dL (7-18)
[2024-08-04 12:29] LABS: CREATININE 1.4 mg/dL (0.55-1.3)
[2024-08-04 12:30] LABS: BILIRUBIN,TOTAL 0.6 mg/dL (0.2-1)
[2024-08-04 13:09] LABS: HIV INTERPRETATION NEGATIVE (NEGATIVE)
[2024-08-04] MEDS: MAGNESIUM HYDROX 2400MG/30ML ORAL SUSPENSION 30 ML CUP PO PRN (17:22)
[2024-08-04] MEDS: QUEtiapine FUMARATE 50 MG TABLET PO SCH (22:05)
[2024-08-05] MEDS: VITAMINS A AND D TOPICAL OINTMENT TP PRN (10:07)
[2024-08-05] MEDS: METHOCARBAMOL 500 MG TABLET PO PRN (22:33)
[2024-08-06] MEDS: chlordiazePOXIDE HCL 25 MG CAPSULE PO SCH (05:50)
[2024-08-07] MEDS ORDERED: chlordiazePOXIDE HCL 10 MG CAPSULE PO PRN
[2024-08-07] MEDS: chlordiazePOXIDE HCL 10 MG CAPSULE PO SCH (05:57)
[2024-08-07 11:35] LABS: BASO % 0.6 % (0-2.0); HEMATOCRIT 38.6 % (35.4-49); HEMOGLOBIN 12.8 GM/dL (11.7-16.9); LYMPH % 33.4 % (8-40); MCH 28.4 pg (25.7-33.7); MCHC 33.2 g/dl (32.0-35.9); MEAN CELL VOLUME 85.6 fl (80-96); MEAN PLT VOLUME 8.7 fl (7.5-11.1); MONO % 7.9 % (3.8-10.2); NEUT % 55.1 % (42.8-82.8); PLATELET COUNT 219 10^3/uL (134-434); RBC 4.51 M/mm3 (4.00-5.60); RDW 13.7 % (11.9-15.9); WHITE BLOOD COUNT 4.2 K/mm3 (4.0-10.0)
[2024-08-07 11:42] LABS: POTASSIUM 4.2 mmol/L (3.5-5.1)
[2024-08-07 11:46] LABS: BLOOD UREA NITROGEN 20.4 mg/dL (7-18)
[2024-08-07 11:48] LABS: CREATININE 1.7 mg/dL (0.55-1.3)
[2024-08-08] MEDS: chlordiazePOXIDE HCL 10 MG CAPSULE PO SCH (05:32)
[2024-08-08] MEDS: NALOXONE (NYS OPIOID OVERDOSE PROGRAM) 4 MG/0.1 ML SPRAY NS SCH (11:35)
[2024-08-09] MEDS: chlordiazePOXIDE HCL 10 MG CAPSULE PO ONE (05:40)
[2024-08-09 09:36] VITALS: BP 136/77; PULSE 82; RESP 18; TEMP 98.7
== END 2024-08-09 13:03 | disposition other institution (70) | DRG 897 ==
LOC: YASAS 16:20 → Y3N 08-04 08:27
PROVIDERS: ADMIT Allergy & Immunology; ATTEND Surgery
PROC: HZ2ZZZZ Detoxification Services for Substance Abuse Treatment (ICD-10-PCS; principal; 2024-08-04)
DX: F10.230 Alcohol dependence with withdrawal, uncomplicated (principal); F14.20 Cocaine dependence, uncomplicated; F19.24 Other psychoactive substance dependence with psychoactive substance-induced mood disorder; F41.9 Anxiety disorder, unspecified; G47.00 Insomnia, unspecified; I10 Essential (primary) hypertension; N28.9 Disorder of kidney and ureter, unspecified; Z85.528 Personal history of other malignant neoplasm of kidney; Z62.810 Personal history of physical and sexual abuse in childhood; Z63.8 Other specified problems related to primary support group
CPT/HCPCS: 36415; 80048; 80053; 80305; 80307; 85025; 85027; 86803; 87389; 87811

== ENCOUNTER 2024-08-09 13:30 | Inpatient (IN) | payer OTHER ==
[2024-08-09] MEDS ORDERED: BENZOCAINE/MENTHOL (CHLORASEPTIC ) LOZENGE MM PRN (16:21)
[2024-08-09] MEDS ORDERED: NALOXONE HCL 0.4 MG/ML VIAL IVPUSH PRN (16:21)
[2024-08-09] MEDS ORDERED: BENZONATATE 200 MG CAPSULE PO PRN (16:21)
[2024-08-09] MEDS ORDERED: NALOXONE (NARCAN) HCL 4 MG/0.1 ML SPRAY NS PRN (16:21)
[2024-08-09] MEDS ORDERED: POLYETHYLENE GLYCOL (HEALTHYLAX) 3350 17 GM PACKET PO PRN (16:21)
[2024-08-09] MEDS ORDERED: guaiFENesin 600 MG TABLET.ER (FP) PO PRN (16:21)
[2024-08-09] MEDS: MELATONIN 5 MG TABLETS PO SCH (21:08)
[2024-08-09] MEDS: THIAMINE 100 MG TABLET PO SCH (21:08)
[2024-08-09] MEDS: QUEtiapine FUMARATE 50 MG TABLET PO SCH (21:09)
[2024-08-10] MEDS: PRENATAL VITAMINS W/ FOLIC ACID TABLET (FP) PO SCH (09:50)
[2024-08-10] MEDS: NALTREXONE HCL 50 MG TABLET PO ONE (12:47)
[2024-08-10] MEDS: VITAMINS A AND D TOPICAL OINTMENT TP SCH (18:57)
[2024-08-10 19:52] LABS: HIV INTERPRETATION NEGATIVE (NEGATIVE)
[2024-08-11] MEDS: NALTREXONE HCL 50 MG TABLET PO SCH (10:34)
[2024-08-13] MEDS: ACETAMINOPHEN 325 MG TABLET (FP) PO PRN (06:56)
[2024-08-13] MEDS: METHOCARBAMOL 500 MG TABLET PO PRN (06:56)
[2024-08-14] MEDS: FLU VACCINE (FLULAVAL) PF 45 MCG/0.5 ML SYRINGE 2024-2025 IM ONE (14:19)
[2024-08-14] MEDS: TOLNAFTATE 1% CREAM 15 GM TUBE TP SCH (21:06)
[2024-08-15] MEDS: QUEtiapine FUMARATE 25 MG TABLET PO SCH (21:59)
[2024-08-20] MEDS: hydrOXYzine PAMOATE 25 MG CAPSULE (FP) PO PRN (16:38)
[2024-08-21] MEDS ORDERED: ONDANSETRON *ODT* 4 MG TABLET SL PRN (09:15)
[2024-08-21] MEDS: LOPERAMIDE HCL 2 MG CAPSULE PO PRN (09:16)
[2024-08-22 06:30] VITALS: TEMP 97.3
[2024-08-23 06:48] VITALS: BP 148/83; PULSE 67; RESP 16
[2024-08-23] MEDS: NALTREXONE MICROSPHERES (VIVITROL) 380 MG DISP.SYRIN IM ONE (07:12)
[2024-08-23] MEDS ORDERED: NALOXONE (NYS OPIOID OVERDOSE PROGRAM) 4 MG/0.1 ML SPRAY NS PRN (09:30)
[2024-08-24] MEDS ORDERED: NALTREXONE MICROSPHERES (VIVITROL) 380 MG DISP.SYRIN IM ONE (08:00)
== END 2024-08-23 11:09 | disposition home or self-care (01) | DRG 895 ==
LOC: YASAS 13:30 → Y3W 13:31
PROVIDERS: ADMIT Psychiatry & Neurology Pain Medicine; ATTEND Psychiatry & Neurology Pain Medicine
PROC: HZ42ZZZ Group Counseling for Substance Abuse Treatment, Cognitive-Behavioral (ICD-10-PCS; principal; 2024-08-09)
DX: F10.20 Alcohol dependence, uncomplicated (principal); F14.20 Cocaine dependence, uncomplicated; N17.9 Acute kidney failure, unspecified; F41.9 Anxiety disorder, unspecified; F32.A Depression, unspecified; G47.00 Insomnia, unspecified; I10 Essential (primary) hypertension; M54.50 Low back pain, unspecified; G89.29 Other chronic pain; B35.3 Tinea pedis; Z85.528 Personal history of other malignant neoplasm of kidney
CPT/HCPCS: 36415; 86803; 87389; 90656; G0008; J2315

== ENCOUNTER 2024-10-30 11:13 | Inpatient (IN) | payer OTHER ==
[2024-10-30] MEDS ORDERED: hydrOXYzine PAMOATE 25 MG CAPSULE (FP) PO PRN (11:45)
[2024-10-30] MEDS ORDERED: POLYETHYLENE GLYCOL (HEALTHYLAX) 3350 17 GM PACKET PO PRN (11:45)
[2024-10-30] MEDS ORDERED: guaiFENesin 600 MG TABLET.ER (FP) PO PRN (11:45)
[2024-10-30] MEDS ORDERED: IBUPROFEN 600 MG TABLET (FP) PO PRN (11:45)
[2024-10-30] MEDS ORDERED: MAG HYDROX/AL HYDROX/SIMETH 30 ML UNIT-DOSE CUP PO PRN (11:45)
[2024-10-30] MEDS ORDERED: LOPERAMIDE HCL 2 MG CAPSULE PO PRN (11:45)
[2024-10-30] MEDS ORDERED: NALOXONE (NARCAN) HCL 4 MG/0.1 ML SPRAY NS PRN (11:45)
[2024-10-30] MEDS ORDERED: BISMUTH SUBSALICYLATE 262 MG/15 ML BTL PO PRN (11:45)
[2024-10-30] MEDS ORDERED: MAGNESIUM HYDROX 2400MG/30ML ORAL SUSPENSION 30 ML CUP PO PRN (11:45)
[2024-10-30] MEDS ORDERED: ONDANSETRON *ODT* 4 MG TABLET SL PRN (11:45)
[2024-10-30] MEDS ORDERED: DICYCLOMINE HCL 10 MG CAPSULE PO PRN (11:45)
[2024-10-30] MEDS ORDERED: IBUPROFEN 400 MG TABLET (FP) PO PRN (11:45)
[2024-10-30] MEDS ORDERED: BENZONATATE 200 MG CAPSULE PO PRN (11:45)
[2024-10-30 12:32] VITALS: BMI 24.6
[2024-10-30] MEDS: chlordiazePOXIDE HCL 25 MG CAPSULE PO PRN (14:27)
[2024-10-30] MEDS: NALTREXONE HCL 50 MG TABLET PO SCH (17:04)
[2024-10-30] MEDS: MELATONIN 5 MG TABLETS PO SCH (22:19)
[2024-10-30] MEDS: QUEtiapine FUMARATE 50 MG TABLET PO SCH (22:19)
[2024-10-30] MEDS: THIAMINE 100 MG TABLET PO SCH (22:19)
[2024-10-30] MEDS: METHOCARBAMOL 500 MG TABLET PO PRN (22:19)
[2024-10-30] MEDS: chlordiazePOXIDE HCL 25 MG CAPSULE PO SCH (22:20)
[2024-10-31] MEDS: PRENATAL VITAMINS W/ FOLIC ACID TABLET (FP) PO SCH (10:35)
[2024-10-31 11:24] LABS: POTASSIUM 3.8 mmol/L (3.5-5.1)
[2024-10-31 11:29] LABS: CALCIUM 8.4 mg/dL (8.5-10.1)
[2024-10-31 11:30] LABS: ALBUMIN 2.9 g/dl (3.4-5.0)
[2024-10-31 11:31] LABS: BLOOD UREA NITROGEN 9.2 mg/dL (7-18)
[2024-10-31 11:32] LABS: CREATININE 1.5 mg/dL (0.55-1.3)
[2024-10-31 11:33] LABS: HEMATOCRIT 41.8 % (35.4-49); HEMOGLOBIN 13.5 GM/dL (11.7-16.9); MCH 27.9 pg (25.7-33.7); MCHC 32.2 g/dl (32.0-35.9); MEAN CELL VOLUME 86.8 fl (80-96); MEAN PLT VOLUME 10.1 fl (7.5-11.1); PLATELET COUNT 196 10^3/uL (134-434); RBC 4.82 M/mm3 (4.00-5.60); RDW 13.8 % (11.9-15.9); TOT PROT 5.4 g/dl (6.4-8.2); WHITE BLOOD COUNT 3.1 K/mm3 (4.0-10.0)
[2024-10-31 11:34] LABS: BILIRUBIN,TOTAL 0.3 mg/dL (0.2-1)
[2024-11-01] MEDS: chlordiazePOXIDE HCL 25 MG CAPSULE PO SCH (05:21)
[2024-11-01] MEDS: BENZOCAINE/MENTHOL (CHLORASEPTIC ) LOZENGE MM PRN (05:22)
[2024-11-02] MEDS ORDERED: chlordiazePOXIDE HCL 10 MG CAPSULE PO PRN
[2024-11-02] MEDS: chlordiazePOXIDE HCL 10 MG CAPSULE PO SCH (05:48)
[2024-11-02] MEDS: QUEtiapine FUMARATE 50 MG TABLET PO ONE (23:26)
[2024-11-03] MEDS: chlordiazePOXIDE HCL 10 MG CAPSULE PO SCH (05:42)
[2024-11-03] MEDS: QUEtiapine FUMARATE 50 MG TABLET PO SCH (21:38)
[2024-11-04] MEDS: ACETAMINOPHEN 325 MG TABLET (FP) PO PRN (00:24)
[2024-11-04] MEDS: chlordiazePOXIDE HCL 10 MG CAPSULE PO ONE (05:19)
[2024-11-04 09:01] VITALS: BP 143/96; PULSE 78; RESP 18; TEMP 97.1
== END 2024-11-04 12:37 | disposition other institution (70) | DRG 897 ==
LOC: YASAS 11:13 → Y3N 13:37
PROVIDERS: ADMIT Allergy & Immunology; ATTEND Allergy & Immunology
PROC: HZ2ZZZZ Detoxification Services for Substance Abuse Treatment (ICD-10-PCS; principal; 2024-10-30)
DX: F10.230 Alcohol dependence with withdrawal, uncomplicated (principal); F14.20 Cocaine dependence, uncomplicated; F19.280 Other psychoactive substance dependence with psychoactive substance-induced anxiety disorder; F19.24 Other psychoactive substance dependence with psychoactive substance-induced mood disorder; F41.8 Other specified anxiety disorders; I10 Essential (primary) hypertension; Z85.528 Personal history of other malignant neoplasm of kidney; Z62.810 Personal history of physical and sexual abuse in childhood; Z63.8 Other specified problems related to primary support group
CPT/HCPCS: 36415; 80053; 80305; 80307; 85027; 86780; 87811; 93005; 93010

== ENCOUNTER 2024-11-04 11:49 | Inpatient (IN) | payer OTHER ==
[2024-11-04] MEDS ORDERED: guaiFENesin 600 MG TABLET.ER (FP) PO PRN (15:25)
[2024-11-04] MEDS ORDERED: IBUPROFEN 600 MG TABLET (FP) PO PRN (15:25)
[2024-11-04] MEDS ORDERED: IBUPROFEN 400 MG TABLET (FP) PO PRN (15:25)
[2024-11-04] MEDS ORDERED: BENZONATATE 200 MG CAPSULE PO PRN (15:25)
[2024-11-04] MEDS ORDERED: POLYETHYLENE GLYCOL (HEALTHYLAX) 3350 17 GM PACKET PO PRN (15:25)
[2024-11-04] MEDS ORDERED: METHOCARBAMOL 500 MG TABLET PO PRN (15:25)
[2024-11-04] MEDS ORDERED: hydrOXYzine PAMOATE 25 MG CAPSULE (FP) PO PRN (15:25)
[2024-11-04] MEDS ORDERED: MAGNESIUM HYDROX 2400MG/30ML ORAL SUSPENSION 30 ML CUP PO PRN (15:25)
[2024-11-04] MEDS: MELATONIN 5 MG TABLETS PO SCH (21:55)
[2024-11-04] MEDS: QUEtiapine FUMARATE 25 MG TABLET PO SCH (21:55)
[2024-11-04] MEDS: THIAMINE 100 MG TABLET PO SCH (21:55)
[2024-11-05] MEDS: ACETAMINOPHEN 325 MG TABLET (FP) PO PRN (04:26)
[2024-11-05] MEDS: PRENATAL VITAMINS W/ FOLIC ACID TABLET (FP) PO SCH (05:35)
[2024-11-05] MEDS: BENZOCAINE/MENTHOL (CHLORASEPTIC ) LOZENGE MM PRN (05:37)
[2024-11-05] MEDS: CLOTRIMAZOLE 1% CREAM TP SCH (11:57)
[2024-11-05] MEDS: VITAMINS A AND D TOPICAL OINTMENT TP PRN (21:52)
[2024-11-07] MEDS: amLODIPine BESYLATE 2.5 MG TABLET (FP) PO SCH (15:14)
[2024-11-07] MEDS: NALTREXONE HCL 50 MG TABLET PO SCH (15:14)
[2024-11-07] MEDS: amLODIPine BESYLATE 5 MG TABLET (FP) PO ONE (20:41)
[2024-11-09] MEDS: amLODIPine BESYLATE 5 MG TABLET (FP) PO SCH (09:49)
[2024-11-15] MEDS ORDERED: amLODIPine BESYLATE 5 MG TABLET (FP) PO SCH (10:16)
[2024-11-16] MEDS: amLODIPine BESYLATE 2.5 MG TABLET (FP) PO SCH (09:43)
[2024-11-20] MEDS: CALAMINE 8% TOPICAL LOTION 177 ML BOTTLE TP SCH (09:47)
[2024-11-22] MEDS: LOPERAMIDE HCL 2 MG CAPSULE PO PRN (07:05)
[2024-11-23] MEDS: MAG HYDROX/AL HYDROX/SIMETH 30 ML UNIT-DOSE CUP PO PRN (20:06)
[2024-11-26 07:04] VITALS: RESP 16
[2024-11-27 07:17] VITALS: TEMP 98.1
[2024-11-27] MEDS ORDERED: NALTREXONE MICROSPHERES (VIVITROL) 380 MG DISP.SYRIN IM ONE (10:00)
[2024-11-27] MEDS: NALTREXONE MICROSPHERES (VIVITROL) 380 MG DISP.SYRIN IM ONE (12:33)
[2024-11-28 06:54] VITALS: BP 118/74; PULSE 70
== END 2024-11-28 10:00 | disposition home or self-care (01) | DRG 895 ==
LOC: YASAS 11:49 → Y3NR 12:06 → Y5N 11-06 11:10
PROVIDERS: ADMIT Allergy & Immunology; ATTEND Psychiatry & Neurology Pain Medicine
PROC: HZ42ZZZ Group Counseling for Substance Abuse Treatment, Cognitive-Behavioral (ICD-10-PCS; principal; 2024-11-04)
DX: F10.20 Alcohol dependence, uncomplicated (principal); F14.20 Cocaine dependence, uncomplicated; F19.282 Other psychoactive substance dependence with psychoactive substance-induced sleep disorder; F19.24 Other psychoactive substance dependence with psychoactive substance-induced mood disorder; F32.A Depression, unspecified; F41.9 Anxiety disorder, unspecified; I10 Essential (primary) hypertension; G47.00 Insomnia, unspecified; Z85.528 Personal history of other malignant neoplasm of kidney; Z90.5 Acquired absence of kidney
CPT/HCPCS: 0241U-QW; 36415; 86803; J2315